=== PATIENT | male | born 1940 | race Caucasian/White ===

== ENCOUNTER → 2017-10-29 11:32 | Outpatient (CLI) | payer MEDICARE, SELFPAY ==
[2017-10-29 13:16] LABS: Alanine Aminotransferase 25 U/L (12-78); Albumin/Globulin Ratio 1.4 (1.1-1.8); Alkaline Phosphatase 82 U/L (46-116); Anion Gap 12.4 mEq/L (5-15); Aspartate Amino Transferase 12 U/L (15-37); Bilirubin,Total 0.8 mg/dL (0.2-1.0); Blood Urea Nitrogen 22 mg/dL (7-18); Carbon Dioxide 29 mmol/L (21.0-32.0); Chloride 106 mmol/L (98-107); Chol/HDL Ratio 4.9 (1-3.5); Cholesterol 210 mg/dL (140-200); Creatinine,Serum 1.23 mg/dL (0.70-1.30); Estimated Glomerular Filt Rate 57 ml/min (>60); GFR (African American) 69 ML/MIN (>60); Globulin 2.8 gm/dl (1.3-3.2); Glucose 99 mg/dL (74-106); HDL Cholesterol 43 mg/dL (27-67); LDL Cholesterol 140 mg/dL (0-130); Potassium 5.4 mmoL/L (3.5-5.1); Sodium 142 mmol/L (136-145); Total Protein,Serum 6.8 gm/dL (6.4-8.2); Triglycerides 133 mg/dL (30-200); VLDL Cholesterol 27 mg/dL (0-40)
== END ==
PROVIDERS: PCP Family Medicine; Visit Provider Family Medicine
DX: E78.00 Pure hypercholesterolemia, unspecified (principal)
CPT/HCPCS: 36415; 80053; 80061

== ENCOUNTER → 2018-06-11 14:00 | Outpatient (CLI) | payer MEDICARE, SELFPAY ==
--- NOTE | 2018-06-11 14:05 | US_ITS ---
US Testicular CLINICAL INDICATION: ITS.REASON: LT TESTICULAR PAIN ORDERING PHYSICIAN: Bruce Hamilton MD PATIENT AGE: 78 years Comparison: None FINDINGS: No testicular mass. No significant hydrocele. Epididymides are unremarkable. There is bilateral testicular blood flow. No spermatocele or varicocele. IMPRESSION: Negative testicular ultrasound
== END ==
PROVIDERS: PCP Family Medicine; Visit Provider Family Medicine
DX: N50.812 Left testicular pain (principal)
CPT/HCPCS: 76870

== ENCOUNTER → 2019-07-17 10:24 | Outpatient (CLI) | payer MEDICARE, SELFPAY | PROVIDERS: PCP Family Medicine; Visit Provider Internal Medicine Cardiovascular Disease | DX: I49.3 Ventricular premature depolarization (principal); R00.2 Palpitations; R06.00 Dyspnea, unspecified; R42 Dizziness and giddiness | CPT/HCPCS: 93270 ==

== ENCOUNTER → 2020-02-24 07:01 | Outpatient (CLI) | payer MEDICARE, SELFPAY ==
[2020-02-24 09:22] LABS: Alanine Aminotransferase 19 U/L (12-78); Albumin Level 4.4 g/dl (3.5-5.0); Alkaline Phosphatase 65 U/L (38-126); Aspartate Amino Transferase 27 U/L (17-59); Bilirubin,Direct 0.3 mg/dl (0.0-0.4); Bilirubin,Indirect 0.5 mg/dL (0.0-0.9); Bilirubin,Total 0.8 mg/dl (0.2-1.3); Bilirubin,Unconjugated 0.4 mg/dL (0.0-1.1); Chol/HDL Ratio 4.4 (1-3.5); Cholesterol 194 mg/dl (140-200); HDL Cholesterol 44 mg/dl (40-60); Total Protein,Serum 7.3 g/dl (6.3-8.2); Triglycerides 132 mg/dl (30-150); VLDL Cholesterol 26 mg/dL (0-40)
== END ==
PROVIDERS: Visit Provider Internal Medicine Cardiovascular Disease
DX: E78.5 Hyperlipidemia, unspecified (principal); I10 Essential (primary) hypertension; I25.10 Atherosclerotic heart disease of native coronary artery without angina pectoris
CPT/HCPCS: 36415; 80061; 80076

== ENCOUNTER → 2020-06-14 07:11 | Outpatient (CLI) | payer MEDICARE, SELFPAY ==
[2020-06-14 07:49] LABS: Basophils # 0.1 K/mm3 (0-0.2); Eosinophils # 0.4 K/mm3 (0.0-0.4); Hematocrit 43.3 % (42.0-52.0); Hemoglobin 14.3 g/dL (14.1-18.0); Lymphocytes # 1.8 K/mm3 (0.7-4.5); Lymphocytes % 25.4 % (10-50); Mean Corpuscular Hemoglobin 31.7 pg (27.0-31.2); Mean Platelet Volume 8.8 fl (7.4-10.4); Monocytes # 0.5 K/mm3 (0.1-1.0); Monocytes % 6.5 % (1.7-9.3); Neutrophils # 4.4 K/mm3 (1.8-7.8); Neutrophils % 61.1 % (37.0-80.0); Platelet Count 200 K/mm3 (142-424); Red Blood Count 4.51 M/mm3 (4.60-6.20); Red Cell Distribution Width 13.6 % (11.5-17.5); White Blood Count 7.2 K/mm3 (4.8-10.8)
[2020-06-14 08:05] LABS: Alanine Aminotransferase 18 U/L (12-78); Albumin Level 4.4 g/dl (3.5-5.0); Albumin/Globulin Ratio 1.8 (1.1-1.8); Alkaline Phosphatase 75 U/L (38-126); Anion Gap 10.9 mEq/L (5-15); Aspartate Amino Transferase 23 U/L (17-59); Bilirubin,Total 0.5 mg/dl (0.2-1.3); Blood Urea Nitrogen 24 mg/dl (9-20); Calcium 9.4 mg/dl (8.4-10.2); Carbon Dioxide 25 mmol/L (22.0-30.0); Chloride 108 mmol/L (98-107); Cholesterol 136 mg/dl (140-200); Estimated Glomerular Filt Rate 45 ml/min (>60); GFR (African American) 55 ML/MIN (>60); Globulin 2.4 g/dL (1.3-3.2); Glucose 105 mg/dl (74-100); HDL Cholesterol 34 mg/dl (40-60); Potassium 4.9 mmoL/L (3.5-5.1); Sodium 139 mmol/L (136-145); Total Protein,Serum 6.8 g/dl (6.3-8.2); Triglycerides 155 mg/dl (30-150); VLDL Cholesterol 31 mg/dL (0-40)
[2020-06-14 08:16] LABS: Direct LDL Cholesterol 68.42 mg/dL (100-129)
[2020-06-14 08:22] LABS: 25-OH Vitamin D, Total 45.7 ng/mL (30-100)
[2020-06-14 08:36] LABS: Thyroid Stimulating Hormone 4.16 uIU/mL (0.465-4.68)
[2020-06-14 08:55] LABS: Vitamin B12 257 pg/mL (239-931)
== END ==
PROVIDERS: Visit Provider Family Medicine
DX: R53.83 Other fatigue (principal); E78.00 Pure hypercholesterolemia, unspecified; Z68.29 Body mass index [BMI] 29.0-29.9, adult
CPT/HCPCS: 36415; 80053; 80061; 82306; 82607; 84443; 85025

== ENCOUNTER → 2020-08-30 13:26 | Outpatient (CLI) | payer MEDICARE, SELFPAY ==
--- NOTE | 2020-08-30 13:28 | CA_ITS ---
APPROVED REPORT EXAM: Comprehensive 2D, Doppler, and color-flow Echocardiogram Newborn Photographer: Meera Shoemaker, JEMIMA, RVS Ht: 5 ft 10 in Wt: 204lbs BSA: 2.10 BP: 126/87 mmHg Indications: CAD, SOA, Dizziness, HTN, HLD, Ex-smoker, syncope Echo Enhancing Agent Comments: Technically difficult exam due to abn chest circumference. 2D Dimensions IVSd 0.93 cm LVEF (Visual) 47.60 % PWd 1.01 cm LA Volume 29.50 mL LVDd 4.76 cm LA Volume Index 14.00 mL/m2 (M/F) 16-34 LVDs 3.62 cm LVOT 2.06 cm (M/F) 1.5-2.5 M-Mode Dimensions LA Diam 2.89 cm (1.9-4.0) Ao Diam 3.51 cm (2.0-3.7) TAPSE 1.98 (<1.7) LV Diastology E Decel Time 167.00 (160-240 msec) E/A Ratio 0.94 MED E' 6.20 (< 7 cm/sec) MED A' 10.20 cm/s E'/MED E' Ratio 13.58 (>14) LAT E' 5.70 (<10 cm/sec) LAT A' 9.70 cm/s E/LAT E' Ratio 14.77 (>14) Aortic Valve LVOT Max 82.00 (70-110 cm/s) LVOT VTI 15.05 cm AoV Peak Ankush. 116.00 (50-130 cm/s) AI PHT 431.00 ms AO Peak GR. 5.40 mmHg AO Mean GR. 3.20 (<5 mmHg) AO VTI 20.03 (18-25 cm) MATTHEW (VTI) 2.50 (2.5-4.5 cm2) Mitral Valve MV E Max Ankush. 84.00 (40-130 cm/s) MV A Velocity 90.00 (40-130 cm/s) E/A Ratio 0.94 MV Decel. Time 167.00 (160-240 ms) MV PHT 49.00 ms Pulmonary Valve PV Peak Velocity 67.00 (50-150 cm/s) IA End VMAX 156.00 cm/s Tricuspid Valve TR P. Velocity 195.00 cm/s RAP Estimate 10.00 mmHg RVSP 25.20 mmHg Left Ventricle Left atrium is mildly enlarged, left ventricle is normal size, mild concentric left ventricular hypertrophy, visually estimated ejection fraction 55% with no regional wall motion abnormality, grade 1 diastolic dysfunction seen with tissue Doppler evidence of raise left atrial pressure. Right Ventricle Right atrium and right ventricle are mildly enlarged with normal contractility. Aortic Valve Aortic valve is minimally thickened and fibrosed, there is no aortic stenosis, there is mild aortic insufficiency. Mitral Valve Mitral valve is grossly normal, there is trace mitral regurgitation. Tricuspid Valve Tricuspid grossly normal, there is trace tricuspid regurgitation, tricuspid regurgitation jet velocity is inadequate for calculation of the right ventricular systolic pressure. Pulmonic Valve Pulmonic valve is poorly visualized. Great Vessels Aortic root is normal size. Pericardium No significant pericardial effusion noted. Conclusion 1. Mild biatrial abdomen, normal left ventricular size, mild concentric left ventricular hypertrophy, visually estimated ejection fraction 55% with no regional wall motion abnormality, grade 1 diastolic dysfunction seen with tissue Doppler evidence of raise left atrial pressure. 2. Mildly enlarged right ventricle with normal contractility. 3. Mild aortic, trace mitral and tricuspid regurgitation. 4. No significant pericardial effusion noted. Electronically signed by : Josh Briggs, 08/30/2020 22:02:25
--- NOTE | 2020-08-30 13:28 | CA_ITS ---
APPROVED REPORT Teacher Industrial Arts: HARMEET Laterality: Bilateral Study Quality: Good Indications: near syncope Risk Factors CAD Doppler Spectral Velocity Analysis ECA (R) 82.30/15.00 cm/s ECA (L) 98.00/14.20 cm/s dICA (R) 116.00/43.40 cm/s dICA (L) 75.80/28.30 cm/s Ryan (R) 104.80/37.40 cm/s Ryan (L) 48.20/19.90 cm/s pICA (R) 65.80/23.90 cm/s pICA (L) 77.80/18.70 cm/s dCCA (R) 81.60/23.90 cm/s dCCA (L) 87.50/22.40 cm/s pCCA (R) 75.60/19.50 cm/s pCCA (L) 98.00/17.20 cm/s Vert (R) 39.60/12.30 cm/s Vert (L) 49.40/15.40 cm/s ICA/CCA 1.42 ICA/CCA 0.89 Findings Study suggests less than 20% stenosis of the right internal carotid artery. B-Mode Ultrasound demonstrates mild intraluminal plaque in the right internal carotid artery. Study suggests less than 20% stenosis of the left internal carotid artery. Duplex evaluation demonstrates antegrade flow of the bilateral vertebral arteries. Conclusion Study suggests less than 20% stenosis of the right internal carotid artery. B-Mode Ultrasound demonstrates mild intraluminal plaque in the right internal carotid artery. Study suggests less than 20% stenosis of the left internal carotid artery. Duplex evaluation demonstrates antegrade flow of the bilateral vertebral arteries. Electronically signed by : Tad Carballo MD 08/30/2020 17:15:48
== END ==
PROVIDERS: PCP Family Medicine; Visit Provider Internal Medicine Cardiovascular Disease
DX: E78.2 Mixed hyperlipidemia (principal); I10 Essential (primary) hypertension; I25.10 Atherosclerotic heart disease of native coronary artery without angina pectoris; R06.00 Dyspnea, unspecified; R55 Syncope and collapse
CPT/HCPCS: 93306; 93880

== ENCOUNTER → 2020-09-03 11:50 | Outpatient (CLI) | payer MEDICARE, SELFPAY | PROVIDERS: PCP Family Medicine; Visit Provider Internal Medicine Cardiovascular Disease | DX: E78.2 Mixed hyperlipidemia (principal); I10 Essential (primary) hypertension; I25.10 Atherosclerotic heart disease of native coronary artery without angina pectoris; I65.29 Occlusion and stenosis of unspecified carotid artery; R06.00 Dyspnea, unspecified; R55 Syncope and collapse | CPT/HCPCS: 93270 ==

== ENCOUNTER → 2020-09-22 12:16 | Outpatient (CLI) | payer MEDICARE, SELFPAY ==
--- NOTE | 2020-09-22 | CA_ITS ---
APPROVED REPORT Exam: Pharmacologic Technologist: Maricarmen Corrales, Ht: 5 ft 10 in Wt: 203 lbs BSA: 2.10 m2 HR: 77 bpm BP: 150/88 mmHg Rhythm: NSR,PVCS Medical History Medical History: HTN, Hyperlipidemia Medications: Aspirin,,,,, Metoprolol,,,,, Flomax,,,,, RoSUVASTATIN,,,,, Ranolazine,,,,, Allergies: No known drug allergies Cardiac Risk Factors: HTN, Hyperlipidemia Stress Test Details Test: LEXISCAN HR Resting HR: 75 bpm Max Heart Rate (APMHR): 141.212938 bpm Max HR Achieved: 99 bpm Target HR (85% APMHR): 119.047994 bpm % of APMHR: 70.21 Recovery HR: 84 bpm BP Max BP: 160/82 mmHg Recovery BP: 152.0/83.0 mmHg ECG Resting ECG: NSR,PVCS Clinical Exercise duration: 04:01 min Highest Stage Achieved: Exercise capacity: 1.0 METs Stress ECG Conclusion SWITCHED FROM EXERCISE DUE TO DIZZINESS. PT HAD MILD SOA, MALAISE, AND NAUSEA. NO CP. FREQUENT ISOLATED PVCS. NO SIGNIFICANT ST-T CHANGES. UNREMARKABLE LEXISCAN STRESS. MYOVIEW IMAGES REPORTED SEPERATELY. Electronically signed by : Josh Briggs MD 09/23/2020 12:15:18
--- NOTE | 2020-09-22 12:17 | NM_ITS ---
APPROVED REPORT Exam: Nuclear Stress Test Indication: HTN, HYPERLIPDEMIA, FM HX., C.P., SOB, PALPITATIONS, SYNCOPE Patient Location: Outpatient Stress Tech: Maricarmen Corrales [place] Tech:Yvonne DumontKANIKA RT (R)(N)(M) Ht: 5 ft 10 in Wt: 200 lbs HR: 77 bpm BP: 150/88 mmHg BSA: 2.09 m2 BMI: 28.6 History: HTN, HYPERLIPDEMIA, FM HX., C.P., SOB, PALPITATIONS, SYNCOPE Procedure: Patient received a 0.4 mg of intravenous Lexiscan, resting heart rate 77 bpm, resting blood pressure 150/88 mmHg, with Lexiscan maximum heart rate achived was 95 bpm which is Less than 85 % of the maximum predicted heart rate and blood pressure was 131/81 mmHg. With Lexiscan, patient denied any complaint of chest pain. Electrocardiogram Resting electrocardiogram shows sinus rhythm, with Lexiscan there is less than 1.[address] segment depression noted from the baseline EKG. The EKG portion of the Lexiscan is nondiagnostic. Cardiac Stress and Resting SPECT Images: Cardiac Stress and Resting SPECT images were obtained using technetium 99m Myoview 31.9 mCi stress and 10.23 mCi at rest. Gated SPECT for analysis of segmental wall motion and calculation of the ejection fraction also done. Prone images were also obtained. Cardiac stress and resting SPECT images show uniform myocardial activity without segmental perfusion abnormality, computer derived ejection fraction is 47% with no regional wall motion abnormality, right ventricle is normal size and contractility. Conclusion: 1. The EKG portion of the Lexiscan is nondiagnostic. 2. No scintigraphic evidence of reversible ischemia seen, computer derived ejection fraction is 47% with no regional wall motion abnormality, right ventricle is normal size and contractility. 3. Likely normal Lexiscan Myoview study. Electronically signed by : Josh Briggs MD 09/23/2020 12:54:53
== END ==
PROVIDERS: PCP Family Medicine; Visit Provider Internal Medicine Cardiovascular Disease
DX: E78.2 Mixed hyperlipidemia (principal); I10 Essential (primary) hypertension; I25.10 Atherosclerotic heart disease of native coronary artery without angina pectoris; I47.2 Ventricular tachycardia; I65.29 Occlusion and stenosis of unspecified carotid artery; R06.00 Dyspnea, unspecified; R55 Syncope and collapse
CPT/HCPCS: 78452; 93017; A9502; J2785

== ENCOUNTER → 2021-11-29 14:29 | Outpatient (CLI) | payer MEDICARE, SELFPAY ==
--- NOTE | 2021-11-29 14:37 | XR_ITS ---
FINAL REPORT CLINICAL HISTORY: RADICULOPATHY UPPER EXTREMITY FINDINGS: CERVICAL SPINE Six views demonstrate no acute fracture. There are moderate to severe degenerative changes. There is mild anterolisthesis of C5 on 6. There is a moderate to severe bilateral neural foraminal narrowing at C3-4. There is mild neural foraminal narrowing at several other levels. IMPRESSION: Multilevel degenerative disc disease. Reviewed, Interpreted and Dictated by Romel Burleson III, MD Transcribed by Anita Peterson Authenticated and [facility]
--- NOTE | 2021-11-29 14:37 | XR_ITS ---
FINAL REPORT CLINICAL HISTORY: ACUTE PAIN OF LEFT SHOULDER FINDINGS: Left shoulder Three views were obtained. There is no acute fracture or dislocation. There is severe glenohumeral and degenerative change. There is a 30 mm calcification inferior to the glenohumeral joint, likely represents a loose body. IMPRESSION: Severe degenerative change. Loose body as above Reviewed, Interpreted and Dictated by Romel Burleson III, MD Transcribed by Anita Peterson Authenticated and [facility]
== END ==
PROVIDERS: PCP Family Medicine; Visit Provider Family Medicine
DX: M54.10 Radiculopathy, site unspecified (principal); M25.512 Pain in left shoulder
CPT/HCPCS: 72050; 73030

== ENCOUNTER → 2021-12-19 10:52 | Outpatient (CLI) | payer MEDICARE, SELFPAY ==
--- NOTE | 2021-12-19 10:55 | CT_ITS ---
FINAL REPORT TECHNIQUE: Axial images were obtained of the cervical spine by computed tomography. Coronal and sagittal reconstruction process performed. This study was performed with techniques to keep radiation doses as low as reasonably achievable (ALARA). Individualized dose reduction techniques using automated exposure control or adjustment of mA and/or kV according to the patient''s size were employed. CLINICAL HISTORY: CERVICAL DISC DISEASE,CSP ARTHRITIS FINDINGS: Cervical vertebrae show normal height. There is advanced disc space narrowing throughout the cervical discs. There is grade 1 spondylolisthesis of C5 on C6. There is mucoperiosteal thickening and air fluid levels in the ethmoid air cells and maxillary sinuses consistent with acute and chronic sinusitis. Mucoperiosteal thickening is also evident in the sphenoid sinus. C2-3: Unremarkable. C3-4: There is a posterior osteophyte eccentric to the right. There is moderate to high-grade right neural foraminal narrowing. C4-5: There is endplate hypertrophy with moderate left neural foraminal narrowing. C5-6: There is moderate endplate hypertrophy with moderate left neural foraminal narrowing. C6-7: There is mild endplate hypertrophy with mild to moderate bilateral neural foraminal narrowing. C7-T1: There is endplate hypertrophy with moderate left neural foraminal narrowing. IMPRESSION: Multilevel hypertrophic changes of degenerative disc disease, particularly evident on the right at C3-4. Acute and chronic paranasal sinusitis. Reviewed, Interpreted and Dictated by Armaan Banks MD Transcribed by Mary Parmar Authenticated and [facility]
== END ==
PROVIDERS: PCP Family Medicine; Visit Provider Family Medicine
DX: M50.90 Cervical disc disorder, unspecified, unspecified cervical region (principal); M54.12 Radiculopathy, cervical region; M47.812 Spondylosis without myelopathy or radiculopathy, cervical region
CPT/HCPCS: 72125

== ENCOUNTER → 2022-01-06 09:21 | Outpatient (CLI) | payer MEDICARE, SELFPAY ==
--- NOTE | 2022-01-06 09:28 | XR_ITS ---
FINAL REPORT TECHNIQUE: Chest PA & Lateral CLINICAL HISTORY: LUNG NODULE COMPARISON: February 2016 FINDINGS: 2 views of the chest were performed. The heart size is normal. The mediastinum is within normal limits. There is no acute cardiopulmonary process. There are no pleural effusions. There is no pneumothorax. The bony thorax appears intact. IMPRESSION: No acute cardiopulmonary process. Reviewed, Interpreted and Dictated by Armaan Banks MD Transcribed by Jay Jay Madera Authenticated and [facility]
== END ==
PROVIDERS: PCP Family Medicine; Visit Provider Family Medicine
DX: R91.1 Solitary pulmonary nodule (principal)
CPT/HCPCS: 71046

== ENCOUNTER → 2022-11-20 11:06 | Outpatient (CLI) | payer MEDICARE, SELFPAY ==
[2022-11-20 11:49] LABS: Basophils # 0.1 K/mm3 (0-0.2); Basophils % 0.7 % (0.1-2.0); Eosinophils # 0.5 K/mm3 (0.0-0.4); Eosinophils % 7.2 % (0.1-12.0); Hematocrit 42.7 % (42.0-52.0); Hemoglobin 14.4 g/dL (14.1-18.0); Lymphocytes # 1.7 K/mm3 (0.7-4.5); Lymphocytes % 23.9 % (10-50); Mean Corpuscular HGB Conc 33.6 g/dL (31.8-35.4); Mean Corpuscular Hemoglobin 31.9 pg (27.0-31.2); Mean Platelet Volume 9.2 fl (7.4-10.4); Monocytes # 0.5 K/mm3 (0.1-1.0); Monocytes % 6.2 % (1.7-9.3); Neutrophils # 4.5 K/mm3 (1.8-7.8); Neutrophils % 62.1 % (37.0-80.0); Platelet Count 149 K/mm3 (142-424); White Blood Count 7.2 K/mm3 (4.8-10.8)
[2022-11-20 12:35] LABS: Alanine Aminotransferase 21 U/L (12-78); Albumin Level 4.3 g/dl (3.5-5.0); Alkaline Phosphatase 61 U/L (38-126); Anion Gap 12.6 mEq/L (5-15); Aspartate Amino Transferase 29 U/L (17-59); Bilirubin,Direct 0.2 mg/dl (0.0-0.4); Bilirubin,Indirect 0.5 mg/dL (0.0-0.9); Bilirubin,Total 0.7 mg/dl (0.2-1.3); Bilirubin,Unconjugated 0.5 mg/dL (0.0-1.1); Blood Urea Nitrogen 23 mg/dl (9-20); Calcium 9.1 mg/dl (8.4-10.2); Carbon Dioxide 25 mmol/L (22.0-30.0); Chloride 105 mmol/L (98-107); Chol/HDL Ratio 2.9 (1-3.5); Cholesterol 115 mg/dl (140-200); Estimated Glomerular Filt Rate 58 ml/min (>60); GFR (African American) 70 ML/MIN (>60); Glucose 102 mg/dl (74-100); HDL Cholesterol 39 mg/dl (40-60); Magnesium 1.8 mg/dl (1.6-2.3); Potassium 4.6 mmoL/L (3.5-5.1); Sodium 138 mmol/L (136-145); Triglycerides 92 mg/dl (30-150); VLDL Cholesterol 18 mg/dL (0-40)
[2022-11-20 12:46] LABS: Direct LDL Cholesterol 61.67 mg/dL (100-129)
[2022-11-20 12:50] LABS: Free T4 (Free Thyroxine) 0.86 ng/dl (0.78-2.19)
[2022-11-20 13:04] LABS: Thyroid Stimulating Hormone 2.93 uIU/mL (0.465-4.68)
== END ==
PROVIDERS: PCP Family Medicine; Visit Provider Nurse Practitioner
DX: E78.5 Hyperlipidemia, unspecified (principal); I10 Essential (primary) hypertension; R06.00 Dyspnea, unspecified; I20.9 Angina pectoris, unspecified; Z87.891 Personal history of nicotine dependence
CPT/HCPCS: 36415; 80048; 80061; 80076; 83735; 84439; 84443; 85025

== ENCOUNTER 2023-04-05 18:20 | Emergency (ER) | payer MEDICARE, SELFPAY ==
[2023-04-05 19:50] VITALS: BP 159/85; PULSE 74; RESP 18; TEMP 36.5; O2SAT 96; BMI 28.7
--- NOTE | 2023-04-05 20:03 | EXP.UTC ---
Discharge Plan Disposition Patient Disposition: Home, Self-Care Condition: Good Prescriptions Prescriptions: New erythromycin 5 mg/gram (0.5 %) ointment 1 cm ophthalmic (eye) Q4H 7 Days Qty: 3.5 0RF No Action aspirin [Adult Low Dose Aspirin] 81 mg tablet,delayed release (DR/EC) 81 mg PO ONCE tamsulosin [Flomax] 0.4 mg capsule,extended release 24hr 0.4 mg PO ONCE metoprolol succinate 25 mg tablet extended release 24 hr See Rx Instructions .ROUTE .COMPLEX Qty: 90 4RF Dose Instruction: TAKE 1 TABLET BY MOUTH ONCE DAILY Rx Instructions: TAKE 1 TABLET BY MOUTH ONCE DAILY rosuvastatin 20 mg tablet See Rx Instructions .ROUTE .COMPLEX Qty: 90 3RF Dose Instruction: TAKE 1 TABLET BY MOUTH ONCE DAILY Rx Instructions: TAKE 1 TABLET BY MOUTH ONCE DAILY levothyroxine 25 mcg tablet 25 mcg PO DAILY Referrals Follow up/Referrals: Bruce Hamilton MD [Primary Care Provider] - See instructions Activity Restrictions/Add. Instructions Additional Instructions/Restrictions: Use the eye ointment as directed. Take tylenol or ibuprofen for pain. You should go to your eye doctor and get recheck in 3 to 4 days. Follow up with your regular doctor. GO TO THE ER FOR ANY WORSENING SYMPTOMS OR CONCERNS Clinical Impressions Clinical Impression: Right cornea abrasion, Need for Tdap vaccination Instructions Patient Instructions: DI for Corneal Abrasion, Tetanus, Diphtheria, and Pertussis Vaccine, Erythromycin Ophthalmic Discharge ED Provider: Ryan Vigil [facility] General Stated complaint: right eye pain Time Seen by Provider: 04/05/23 20:03 History of Present Illness Provider Complaint: He states that since yesterday he has had right eye redness, excessive tearing, and eye irritation. He states that he did not think he got anything in the eye, but his symptoms started right after he was working on restoring an antique tractor and grinding rust of the metal. He denies any change in his vision. He states that he has has long history of having poor vision in that eye and there is no change to that. Related Data Home Medications Medication Instructions Recorded Confirmed aspirin 81 mg tablet,delayed 81 mg PO ONCE 03/21/17 04/05/23 release (Adult Low Dose Aspirin) tamsulosin 0.4 mg capsule (Flomax) 0.4 mg PO ONCE 03/21/17 04/05/23 levothyroxine 25 mcg tablet 25 mcg PO DAILY 04/05/23 04/05/23 Previous Rx's Medication Instructions Recorded metoprolol succinate 25 mg See Rx Instructions .Route 11/20/22 tablet,extended release 24 hr .COMPLEX #90 tabs rosuvastatin 20 mg tablet See Rx Instructions .Route 11/20/22 .COMPLEX #90 tabs erythromycin 5 mg/gram (0.5 %) eye 1 cm ophthalmic (eye) Q4H 7 days 04/05/23 ointment #3.5 grams Allergies Allergy/AdvReac Type Severity Reaction Status Date / Time No Known Allergies Allergy Verified 04/05/23 20:15 [facility] Disclaimer: The information contained in this section may have been updated after the patient was seen, as this information can be updated by other users. Medical History Chest pain Dizziness Dyspnea Palpitations PVC (premature ventricular contraction) Social History Smoking Status: Former smoker alcohol intake: current substance use type: denies use current occupational status: retired Travel in the last 8 weeks: Inside the [place] ROS Obtained: Yes All systems reviewed & no additional complaints except as documented Constitutional Constitutional: Denies chills and Denies fever(s) Eyes Eyes: Reports as per HPI, Denies blurry vision, Denies change in vision, Denies diplopia, Reports eye discharge and Reports irritation ENT Ears, Nose, Mouth, and Throat: Denies dizziness, Denies otalgia and Denies sore throat Cardiovascular Cardiovascular: Denies chest pain Respiratory Respiratory: Denies shortness of breath, Denies chest congestion, Denies cough, Denies stridor and Denies wheezing Gastrointestinal Gastrointestingal: Denies nausea or vomiting Musculoskeletal Musculoskeletal: Reports system reviewed and no additional complaints, except as documented and Denies arthralgias Integumentary/Breasts Skin/Breast: Denies rash Neurologic Neurologic: Denies dizziness and Denies paresthesias Allergic/Immunologic Allergic/Immunologic: Denies wheezing Physical Exam General General appearance: alert and in no apparent distress Head Head exam: atraumatic, normocephalic and normal inspection Eye Eye exam: Present PERRL, EOMI and conjunctival redness Expanded Eye Exam Eyelids: left: normal inspection and right: erythema Pupils: Left: size (2), Right: size (2) and Bilateral: regular, round and reactive Sclera/Conjunctival: left: normal inspection and right: injection (there is a small corneal abrasion at the 6:00 position, no foreign body noted.) ENT ENT exam: Present normal exam, normal oropharynx, mucous membranes moist, TM's normal bilaterally and normal external ear exam Neck Neck exam: Present normal inspection, full ROM and trachea midline; Absent meningismus or lymphadenopathy Chest Chest inspection: Present normal inspection and symmetric chest wall rise; Absent tenderness Respiratory Respiratory exam: Present normal lung sounds bilaterally; Absent respiratory distress Cardiovascular Cardiovascular exam: Present regular rate and normal rhythm; Absent JVD Abdominal Exam Abdominal exam: Present soft and normal bowel sounds; Absent distention, tenderness or guarding Extremities Exam Extremities exam: Present normal inspection, full ROM and normal capillary refill; Absent calf tenderness Back Exam Back exam: Present normal inspection; Absent tenderness Neurological Exam Neurological exam: Present alert and oriented X3 Psychiatric Psychiatric exam: Present normal affect and normal mood Skin Skin exam: Present warm, dry, intact and normal color Lymphatic Lymphatic Findings: no adenopathy Medical Decision Making Medical Records Medical records reviewed: No I reviewed the patient's medical records. Fei Inquiry Pt receiving controlled substance: No Procedures Risk/Benefits of Procedure(s) Were Explained: Yes Eye Exam/FB Removal Location: eye (R) Topical anesthetic used: tetracaine Fluorescein Stick(s) used: Yes Time Out performed: Yes Procedure performed under: direct visualization with magnification Foreign body: other (none noted) Evidence of corneal penetration: No Technique: irrigation Post-procedure medication: ophthalmic antibiotic Eye irrigated w/saline (#ccs): 20 Patient tolerated procedure: well and no complications (He tolerated this very well, no foreign body noted. no corneal penetration noted. there is a small corneal abrasion noted at the 6:00 pm position. )
[2023-04-05] MEDS: TET/DIPHTH/PERT-ADULT 0.5ML SYRINGE 0.5 ML IM (21:04)
[2023-04-05 21:16] VITALS: BP 159/85; PULSE 74; RESP 18; TEMP 36.5; O2SAT 96
[2023-04-05] MEDS: TETRACAINE 0.5% OPTH SOL 15ML OP (22:02)
== END 2023-04-05 21:16 | disposition home or self-care (01) ==
PROVIDERS: Emergency Provider Nurse Practitioner Family; PCP Family Medicine
DX: S05.01XA Injury of conjunctiva and corneal abrasion without foreign body, right eye, initial encounter (principal); I10 Essential (primary) hypertension; E78.5 Hyperlipidemia, unspecified; K21.9 Gastro-esophageal reflux disease without esophagitis; W45.8XXA Other foreign body or object entering through skin, initial encounter; Z87.891 Personal history of nicotine dependence; Z23 Encounter for immunization
CPT/HCPCS: 90471; 90715; 99204; 99212; G0463

== ENCOUNTER 2023-10-19 11:43 | Observation (INO) | payer MEDICARE, SELFPAY ==
[2023-10-19] VITALS (20 sets, daily range): BP systolic 100–156; BP diastolic 55–98; PULSE 52–72; RESP 15–18; TEMP 36.6–37.1; O2SAT 91–99; BMI 27.8; BMI 28.3; BMI 28.4
--- NOTE | 2023-10-19 11:45 | ECG_ITS ---
APPROVED REPORT Exam: Resting ECG HR:60 bpm ECG Measurements Heart Rate 60 AXES SC 200 P -4 QRSd 106 QRS 24 QT 427 T 64 QTc 427 Conclusion SINUS RHYTHM NORMAL ECG UNCONFIRMED REPORT Electronically signed by : Puneet Mak MD 10/20/2023 08:33:01
--- NOTE | 2023-10-19 12:01 | XR_ITS ---
FINAL REPORT CLINICAL HISTORY: chest pain COMPARISON: 01/06/2022 FINDINGS: SINGLE-VIEW CHEST The heart size is normal. The mediastinum is normal. The lungs are clear. There is no pneumothorax. IMPRESSION: No acute cardiopulmonary process. Reviewed, Interpreted and Dictated by Romel Burleson III, MD Transcribed by Anita Peterson Authenticated and [facility]
[2023-10-19 12:10] LABS: Albumin Level 4.3 g/dl (3.5-5.0); Basophils # 0.1 K/mm3 (0-0.2); Chloride 107 mmol/L (98-107); Eosinophils # 0.4 K/mm3 (0.0-0.4); Eosinophils % 5.4 % (0.1-12.0); Hematocrit 42.9 % (42.0-52.0); Hemoglobin 13.6 g/dL (14.1-18.0); Lymphocytes # 1.5 K/mm3 (0.7-4.5); Lymphocytes % 21.8 % (10-50); Mean Corpuscular HGB Conc 31.6 g/dL (31.8-35.4); Mean Corpuscular Hemoglobin 30.2 pg (27.0-31.2); Mean Corpuscular Volume 95.6 fl (80-94); Mean Platelet Volume 10.4 fl (7.4-10.4); Monocytes # 0.5 K/mm3 (0.1-1.0); Monocytes % 6.5 % (1.7-9.3); Neutrophils # 4.6 K/mm3 (1.8-7.8); Neutrophils % 65.3 % (37.0-80.0); Platelet Count 190 K/mm3 (142-424); Potassium 4.3 mmoL/L (3.5-5.1); Red Blood Count 4.49 M/mm3 (4.60-6.20); Red Cell Distribution Width 15.5 % (11.5-17.5); Sodium 139 mmol/L (136-145)
[2023-10-19 12:13] LABS: Alanine Aminotransferase 19 U/L (12-78); Albumin/Globulin Ratio 1.5 (1.1-1.8); Alkaline Phosphatase 67 U/L (38-126); Anion Gap 10.3 mEq/L (5-15); Aspartate Amino Transferase 31 U/L (17-59); Bilirubin,Total 0.8 mg/dl (0.2-1.3); Blood Urea Nitrogen 23 mg/dl (9-20); Carbon Dioxide 26 mmol/L (22.0-30.0); Creatinine Clearance Estimated 61 mL/min (50-200); Estimated Glomerular Filt Rate 58 ml/min (>60); GFR (African American) 70 ML/MIN (>60); Globulin 2.9 g/dL (1.3-3.2); Glucose 93 mg/dl (74-100); Total Protein,Serum 7.2 g/dl (6.3-8.2)
[2023-10-19 12:14] LABS: Calcium 8.9 mg/dl (8.4-10.2); Magnesium 1.9 mg/dl (1.6-2.3)
--- NOTE | 2023-10-19 12:28 | PC.NURSE ---
TROPONIN 1.57 RECEIVED FROM [facility] IN LAB, DR KISER NOTIFIED AT THIS TIME. NO NEW ORDERS
[2023-10-19 12:29] LABS: Troponin I 1.57 ng/ml (0.00-0.034)
[2023-10-19 12:30] LABS: T4 (Thyroxine) 8.4 ug/dl (5.53-11.0)
--- NOTE | 2023-10-19 12:37 | PC.NURSE ---
Dr. Hannon s/w Dr. Flores for cardiology consult
--- NOTE | 2023-10-19 12:44 | PC.NURSE ---
SPEAKING WITH DR. FISHMAN AT THIS TIME
--- NOTE | 2023-10-19 12:49 | IR_ITS ---
APPROVED REPORT Patient Location: Emergent Manufacturing Operator: KANIKA Crabtree RT (R) PROCEDURES Left heart catheterization Left ventriculogram Selective coronary angiogram INDICATION Acute non-ST elevation myocardial infarction Informed consent was obtained prior to the procedure. COMPLICATIONS None Estimated Blood Loss: Less than 10 mls TECHNIQUE One percent lidocaine used to anesthetize the right anterior aspect of the wrist. The right radial artery was accessed via the Seldinger technique. A 6 Luxembourgish sheath was placed in the right radial artery. 2.5 mg of Verapamil, 800 mcg of nitroglycerin, 1mg Lidocaine and 5000 U Heparin were given through the arterial sheath. The papa catheter was also used to perform left heart catheterization, left ventriculogram and selective coronary angiogram. At the end of the procedure the sheath was removed good hemostasis was achieved using Traclet band, patient was transferred to the postop holding area in stable condition. ANGIOGRAPHIC RESULTS The left main artery Normal The left anterior descending artery Is widely patent throughout accompanied by mild to moderate diffuse vascular ectasia with no stenosis in the LAD or diagonal artery greater than 20% The circumflex artery Is a large-caliber vessel with moderate proximal and mid vessel vascular ectasia supplying a medium sized widely patent obtuse marginal artery with minimal luminal regularities The right coronary artery Is dominant and has moderate proximal and mid vessel vascular ectasia which then narrows into a widely patent posterior descending artery. CATHLEEN I flow was present throughout The MCGILL ventriculogram reveals Slight left ventricular dilatation with mild anterior wall hypokinesis estimate ejection fraction 50% The left ventricular end-diastolic pressure 20 mmHg IMPRESSION Coronary disease as described above which is essentially unchanged from 2017 cardiac catheterization which also had CATHLEEN I flow down the right coronary artery Regional wall motion abnormality which was present in 2017 also unchanged Mild elevated LVEDP PLAN 1. Recommend Plavix 75 mg daily plus aspirin 81 mg daily for at least 1 year 2. LDL less than 55 to be achieved with high intensity statin 3. CARL inhibitors 4. Cardiac rehabilitation Electronically signed by : Ken Flores MD 10/19/2023 14:57:14
--- NOTE | 2023-10-19 13:00 | PC.NURSE ---
Pt placed in gown, reviewed consent with him and Dr. Hannon. Groin and R radial site clipped. Pt's belongings were collected and placed in belongings bag. Pt belongs consists of: Ball cap, glasses, shorts, belt, cell phone, phone case, wallet (in pants), shoes, t-shirt, and labeled cup with wedding band and watch.
--- NOTE | 2023-10-19 13:19 | PC.NURSE ---
PT TO [facility] VIA WC WITH SERVICE TRAINER
[2023-10-19] MEDS: HEPARIN 1,000 UNITS/ML 10ML VIAL (CATH LAB) 10000 UNIT IV (13:33)
[2023-10-19] MEDS: diphenhydrAMINE 50MG/ML VIAL 50 MG IV (13:33)
[2023-10-19] MEDS: VERAPAMIL 2.5MG/ML 2ML VIAL 2.5 MG IV (13:33)
[2023-10-19] MEDS: 0.9 % SODIUM CHLORIDE 500 ML 25 ML IV (13:34)
[2023-10-19] MEDS: NITROGLYCERIN 800MCG/8ML SYR (CATH LAB) 800 MCG IA (13:34)
[2023-10-19] MEDS: LIDOCAINE 1% 10ML MDV 20 ML IJ (13:34)
[2023-10-19] MEDS: HEPARIN 1,000 UNITS/500ML NS (CATH LAB) 3000 UNIT IV (13:35)
[2023-10-19] MEDS: MIDAZOLAM HCL 1MG/1ML 5ML VIAL 1 MG IV (13:35)
[2023-10-19] MEDS: FENTANYL 100MCG/2ML VIAL 50 MCG IV (13:36)
[2023-10-19] MEDS: IOPAMIDOL-370 (76%);100ML BOTTLE 80 ML IV (15:10)
--- NOTE | 2023-10-19 15:36 | ED_ITS ---
Discharge Plan Disposition Patient Disposition: Still a Patient Condition: Serious Clinical Impressions Clinical Impression: NSTEMI (non-ST elevated myocardial infarction), Chest pain Discharge ED Provider: Wei Hannon Adult HPI General Chief complaint: Chest Pain Stated complaint: Chest Pain Time Seen by Provider: 10/19/23 12:00 Mode of Arrival: Wheelchair Source of Information: Patient and Medical Record Limitations: No Limitations Description of Symptoms (Recalled from ER Triage Doc. by RN): Pt c/o left sided chest pain (tightness) that has been intermittent since last week when he was traveling out of [facility]. He takes a full dose aspirin. Rates pain 2/10 on [employer] at this time. Denies any radiating pain, SOA, or dypnea. Denies any fever, chills, or body aches. Denies any significant cardiac History of Present Illness HPI narrative: 83-year-old male with past medical history significant for GERD, HLD, HTN, reports history of elevated troponin last week in [place] presents today for evaluation concerning chest pain which has been present over the past week. His pain has been more constant today which caused him to come to the ED. He states that when he was in [place] on last week it was recommended that he be admitted to the hospital however he declined. He denies having any significant shortness of breath, fevers, chills, abdominal pain or any other associated symptoms. He took 324 aspirin prior to coming to the ED and states that his current pain is a 1 out of 10. No further complaints at this time. Related Data Home Medications ?Medication ?Instructions ?Recorded ?Confirmed aspirin 81 mg tablet,delayed 81 mg PO ONCE 03/21/17 04/05/23 release (Adult Low Dose Aspirin) tamsulosin 0.4 mg capsule (Flomax) 0.4 mg PO ONCE 03/21/17 04/05/23 levothyroxine 25 mcg tablet 25 mcg PO DAILY 04/05/23 04/05/23 Previous Rx's ?Medication ?Instructions ?Recorded metoprolol succinate 25 mg See Rx Instructions .Route 11/20/22 tablet,extended release 24 hr .COMPLEX #90 tabs rosuvastatin 20 mg tablet See Rx Instructions .Route 11/20/22 .COMPLEX #90 tabs erythromycin 5 mg/gram (0.5 %) eye 1 cm ophthalmic (eye) Q4H 7 days 04/05/23 ointment #3.5 grams Allergies Allergy/AdvReac Type Severity Reaction Status Date / Time No Known Allergies Allergy Verified 04/05/23 20:15 [facility] Disclaimer: The information contained in this section may have been updated after the patient was seen, as this information can be updated by other users. Medical History Chest pain Dizziness Dyspnea Palpitations PVC (premature ventricular contraction) Social History Smoking Status: Unknown if ever smoked alcohol intake: current alcohol intake frequency: a few times a month substance use type: denies use current occupational status: retired Travel in the last 8 weeks: Inside the [place] ROS Obtained: Yes All systems reviewed & no additional complaints except as documented Physical Exam General General appearance: alert and in no apparent distress Head Head exam: atraumatic and normocephalic Eye Eye exam: Present normal appearance, PERRL and EOMI ENT ENT exam: Present normal oropharynx and mucous membranes moist Neck Neck exam: Present full ROM; Absent meningismus Respiratory Respiratory exam: Absent respiratory distress, wheezes, stridor or accessory muscle use Cardiovascular Cardiovascular exam: Present normal rhythm Abdominal Exam Abdominal exam: Present soft; Absent distention, tenderness, guarding, rebound or rigidity Neurological Exam Neurological exam: Present alert, oriented X3 and CN II-XII intact; Absent motor sensory deficit Psychiatric Psychiatric exam: Present normal affect and normal mood Skin Skin exam: Present warm and dry Medical Decision Making Medical Records Medical records reviewed: Yes I reviewed the patient's medical records. Fei Inquiry Pt receiving controlled substance: No Fei was queried for this patient: No Vital Signs: 10/19/23 11:44 10/19/23 12:01 Temperature 98.2 F Temperature Source Oral Pulse Rate [Right] 66 Respiratory Rate 15 15 Blood Pressure 127/72 Blood Pressure [Right Arm] 156/81 H Blood Pressure Mean 106 Blood Pressure Mean [Right Arm] 106 Blood Pressure Source [Right Arm] Automatic Cuff 02 Sat by Pulse Oximetry 98 94 L Oxygen Delivery Method Room Air Room Air Lab Data Lab Results 10/19/23 11:50: WBC 7.0, RBC 4.49 L, Hgb 13.6 L, Hct 42.9, MCV 95.6 H, MCH 30.2, MCHC 31.6 L, RDW 15.5, Plt Count 190, MPV 10.4, Neut % (Auto) 65.3, Lymph % (Auto) 21.8, [place] % (Auto) 6.5, Eos % (Auto) 5.4, Baso % (Auto) 1.0, Neut # (Auto) 4.6, Lymph # (Auto) 1.5, [place] # (Auto) 0.5, Eos # (Auto) 0.4, Baso # (Auto) 0.1, Sodium 139, Potassium 4.3, Chloride 107, Carbon Dioxide 26, Anion Gap 10.3, BUN 23 H, Creatinine 1.20, Estimated Creat Clear 61, Estimated GFR 58 L, Est GFR ( Amer) 70, Glucose 93, Calcium 8.9, Magnesium 1.9, Total Bilirubin 0.8, AST 31, ALT 19, Alkaline Phosphatase 67, Troponin I 1.57 H, Total Protein 7.2, Albumin 4.3, Globulin 2.9, Albumin/Globulin Ratio 1.5, TSH 3.80, Thyroxine (T4) 8.4 10/19/23 11:50 10/19/23 11:50 Orders (Tests/Meds): ED MEDICATIONS Generic Name Dose Route Start Last Admin Trade Name Freq PRN Reason Stop Dose Admin Fentanyl Citrate 50 mcg 10/19/23 12:46 10/19/23 13:36 Fentanyl 100mcg/2ml Vial IV 10/20/23 00:46 100 mcg Q3MINP PRN Administration Moderate to Severe Pain (4-10) Fentanyl Citrate 25 mcg 10/19/23 12:46 Fentanyl 250mcg/5ml Vial IV 10/20/23 00:46 Q3MINP PRN Moderate to Severe Pain (4-10) Fentanyl Citrate 50 mcg 10/19/23 12:46 Fentanyl 250mcg/5ml Vial IV 10/20/23 00:46 Q3MINP PRN Moderate to Severe Pain (4-10) Fentanyl Citrate 25 mcg 10/19/23 12:46 Fentanyl 100mcg/2ml Vial IV 10/20/23 00:46 Q3MINP PRN Moderate to Severe Pain (4-10) Flumazenil 0.2 mg 10/19/23 12:46 Flumazenil 0.1mg/Ml 5ml Vial IV 10/20/23 00:46 NEEDED PRN Sedation Heparin Sodium (Porcine) 10,000 unit 10/19/23 12:46 10/19/23 13:33 Heparin 1,000 Units/Ml 10ml Vial (Cotton Bag Clipper) IV 10/19/23 16:46 5,000 unit NEEDED PRN Administration Emergency Box Table Operator Hydralazine HCl 20 mg 10/19/23 12:46 Hydralazine 20mg/Ml Vial IV 10/19/23 16:46 ONCE PRN sbp>160 Adenosine 180 mg/ Sodium 90 mls @ 489.877 mls/hr 10/19/23 12:46 Chloride IV 10/19/23 16:46 ONCE PRN fractional flow reserve 180 MCG/KG/MIN Adenosine 90 mg/ Sodium 90 mls @ 979.754 mls/hr 10/19/23 12:46 Chloride IV 10/19/23 16:46 ONCE PRN fractional flow reserve 180 MCG/KG/MIN Sodium Chloride 1,000 mls @ 25 mls/hr 10/19/23 13:00 10/19/23 13:34 Sod Chloride 0.9% 500ml Bag IV 10/20/23 12:46 25 mls/hr .Q25H TIEN Administration Labetalol HCl 20 mg 10/19/23 12:46 Labetalol 20mg/4ml Syringe IV 10/19/23 16:46 ONCE PRN sbp>160 Midazolam HCl 1 mg 10/19/23 12:46 Midazolam 2mg/2ml Vial IV 10/20/23 00:46 Q3MINP PRN Sedation Midazolam HCl 1 mg 10/19/23 12:46 10/19/23 13:35 Midazolam Hcl 1mg/1ml 5ml Vial IV 10/20/23 00:46 3 mg Q3MINP PRN Administration Sedation Naloxone HCl 0.4 mg 10/19/23 12:46 Naloxone 0.4mg/Ml Vial IV 10/20/23 00:46 Q5MINP PRN Decreased Respirations Nitroglycerin 800 mcg 10/19/23 12:46 10/19/23 13:34 Nitroglycerin 800mcg/8ml Syr (Cotton Bag Clipper) IA 10/19/23 16:46 800 mcg NEEDED PRN Administration Emergency Box Table Operator Protamine Sulfate 50 mg 10/19/23 12:46 Protamine Sulfate 50mg/5ml Vial (Cotton Bag Clipper) IV 10/19/23 16:46 ONCE PRN act>200 Discontinued Medications Generic Name Dose Route Start Last Admin Trade Name Brandon PRN Reason Stop Dose Admin Diphenhydramine HCl 50 mg 10/19/23 12:46 10/19/23 13:33 Diphenhydramine 50mg/Ml Vial IV 10/19/23 12:47 50 mg ONCE ONE Administration Heparin Sodium/Sodium Chloride 3,000 unit 10/19/23 12:46 10/19/23 13:35 Heparin 1,000 Units/500ml Ns (Cotton Bag Clipper) IV 10/19/23 12:47 3,000 unit ONCE ONE Administration Iopamidol 80 ml 10/19/23 15:09 10/19/23 15:10 Iopamidol-370 (76%);100ml Bottle IV 10/19/23 15:10 80 ml ONCE ONE Administration Lidocaine HCl 20 ml 10/19/23 12:46 10/19/23 13:34 Lidocaine 1% 10ml Mdv IJ 10/19/23 12:47 10 ml ONCE ONE Administration Lidocaine HCl 20 ml 10/19/23 12:46 Lidocaine 1% 5ml Pf Vial IJ 10/19/23 12:47 ONCE ONE Verapamil HCl 2.5 mg 10/19/23 12:46 10/19/23 13:33 Verapamil 2.5mg/Ml 2ml Vial IV 10/19/23 12:47 2.5 mg ONCE ONE Administration ORDERS Category Date Time Status XR chest portable Stat Exams 10/19/23 12:01 Completed Complete Blood Count Auto Diff Stat Lab 10/19/23 11:50 Completed Comprehensive Metabolic Panel Stat Lab 10/19/23 11:50 Completed Magnesium Stat Lab 10/19/23 11:50 Completed T4 (Thyroxine) Stat Lab 10/19/23 11:50 Completed TSH [Thyroid Stimulating Hormone] Stat Lab 10/19/23 11:50 Completed Troponin I Stat Lab 10/19/23 11:50 Completed ECG initial Besson Routine Y 10/19/23 11:45 Completed HEART Score History (anamnesis): Highly suspicious ECG: Normal Age: >65 years Risk factors: 3 or more risk factors Troponin: > 3x normal limit HEART Score: 8 Medical Decision Narrative: 83-year-old male with past medical history significant for GERD, HLD, HTN, reports history of elevated troponin last week in [place] presents today for evaluation concerning chest pain which has been present over the past week. His pain has been more constant today which caused him to come to the ED. He states that when he was in [place] on last week it was recommended that he be admitted to the hospital however he declined. He denies having any significant shortness of breath, fevers, chills, abdominal pain or any other associated symptoms. He took 324 aspirin prior to coming to the ED and states that his current pain is a 1 out of 10. On assessment he was hemodynamically stable and in no acute distress. Afebrile. His chest was clear to auscultation bilaterally. His abdomen was soft nondistended and nontender to palpation. His EKG was personally interpreted by me and showed normal sinus rhythm with a rate of 60 bpm. No ischemic changes noted. Chest x-ray did not show any acute cardiopulmonary disease processes. No elevation in WBC at 7. CMP was nonactionable. His initial troponin was elevated at 1.57. I did consult with cardiology, Dr. Flores, and discussed management and has agreed to evaluate patient for catheterization on today. I also consulted with Dr. Hamilton who is patient's PCP and he has accepted admission at this time. Patient was agreeable to plan and remains hemodynamically stable and in no acute distress. Critical Care Critical Care Time Critical Care Time: No
--- NOTE | 2023-10-19 15:54 | HMH.PHAINT1 ---
Pharmacy Intervention Comments: MEDICATION RECONCILIATION COMPLETE USING EXTERNAL PHARMACY FILL HISTORY.
--- NOTE | 2023-10-19 16:33 | P.HP_ITS ---
History of Present Illness *Admission Date: 10/19/23 *Reason for visit:: Chest pain *History of present illness: Mr. Zaidi is an 83 year old patient of [facility] who presented tot he office today complaining of chest pain and dizziness off and on for the past week. His symptoms started while he was on vacation in [place]. He went to an emergency room there and was told that he was having a heart attack. He was treated with Aspirin and nirtroglycerin and his symptoms resolved. The provider there wanted to admit the patient to the hospital but he declined, and apparently signed out against medical advice. He spent a few more days in [place] before returning home. He states he had a return of symptoms this morning, which he describes as chest pressure and dizziness. He was evaluated in the office today and was directed to the ER at [facility]. Initial troponin was 1.5, cardiology was consulted and took the patient to the mini lab operator for a left heart cath. He previously had a left heart cath in 2017. [facility] Disclaimer: The information contained in this section may have been updated after the patient was seen, as this information can be updated by other users. Medical History (Updated 10/19/23 @ 16:46 by Bruce Hamilton MD) BPH (benign prostatic hyperplasia) Hypothyroidism Hyperlipidemia History of left heart catheterization (LHC) PVC (premature ventricular contraction) Palpitations Chest pain Dizziness Surgical History (Updated 10/19/23 @ 15:44 by Jesica Armstrong RN) History of knee replacement History of right hip replacement Family History (Updated 10/19/23 @ 15:43 by Jesica Armstrong RN) No significant family history Social History (Updated 10/19/23 @ 15:43 by Jesica Armstrong RN) Smoking Status: Unknown if ever smoked alcohol intake: current alcohol intake frequency: a few times a month substance use type: denies use current occupational status: retired Travel in the last 8 weeks: [place] the [place] Review of Systems Constitutional Constitutional: Denies chills and Denies fever(s) ENT Ears, Nose, Mouth, and Throat: Reports dizziness *Cardiovascular Cardiovascular: Reports as per HPI *Respiratory Respiratory: Denies cough *Gastrointestinal Gastrointestinal: Denies abdominal pain and Denies constipation *Genitourinary Genitourinary: Denies hematuria *Musculoskeletal Musculoskeletal: Denies arthralgias *Neurologic Neurologic: Reports dizziness Meds Home Medications and Allergies Home Medications ?Medication ?Instructions ?Recorded ?Confirmed ?Type aspirin 81 mg tablet,delayed 81 mg PO DAILY 03/21/17 10/19/23 History release (Adult Low Dose Aspirin) tamsulosin 0.4 mg capsule (Flomax) 0.4 mg PO HS 03/21/17 10/19/23 History levothyroxine 25 mcg tablet 25 mcg PO DAILYDM 04/05/23 10/19/23 History metoprolol succinate 25 mg 25 mg PO DAILY 10/19/23 10/19/23 History tablet,extended release 24 hr nitroglycerin 0.4 mg sublingual 0.4 mg sublingual Q5MINP PRN Chest 10/19/23 10/19/23 History tablet Pain rosuvastatin 20 mg tablet 20 mg PO HS 10/19/23 10/19/23 History New Prescriptions to Start Prescriptions: Allergies Allergy/AdvReac Type Severity Reaction Status Date / Time No Known Allergies Allergy Verified 04/05/23 20:15 Exam Data for Last 24 hours Vital signs and Labs for Last 24 Hours: Temp Pulse Resp BP Pulse Ox O2 Del Method 97.8 F 55 L 17 103/59 L 95 Room Air 10/19/23 15:45 10/19/23 15:45 10/19/23 15:45 10/19/23 15:45 10/19/23 16:19 10/19/23 16:19 Laboratory Results - last 24 hr 10/19/23 11:50: WBC 7.0, RBC 4.49 L, Hgb 13.6 L, Hct 42.9, MCV 95.6 H, MCH 30.2, MCHC 31.6 L, RDW 15.5, Plt Count 190, MPV 10.4, Neut % (Auto) 65.3, Lymph % (Auto) 21.8, [place] % (Auto) 6.5, Eos % (Auto) 5.4, Baso % (Auto) 1.0, Neut # (Auto) 4.6, Lymph # (Auto) 1.5, [place] # (Auto) 0.5, Eos # (Auto) 0.4, Baso # (Auto) 0.1, Sodium 139, Potassium 4.3, Chloride 107, Carbon Dioxide 26, Anion Gap 10.3, BUN 23 H, Creatinine 1.20, Estimated Creat Clear 61, Estimated GFR 58 L, Est GFR ( Amer) 70, Glucose 93, Calcium 8.9, Magnesium 1.9, Total Bilirubin 0.8, AST 31, ALT 19, Alkaline Phosphatase 67, Troponin I 1.57 H, Total Protein 7.2, Albumin 4.3, Globulin 2.9, Albumin/Globulin Ratio 1.5, TSH 3.80, Thyroxine (T4) 8.4 I & O for Last 24 hours: Intake & Output 10/16/23 10/17/23 10/18/23 10/19/23 23:59 23:59 23:59 23:59 Weight 198 lb 4 oz Constitutional Constitutional: no acute distress *Routine HEENT Exam Head: Present normocephalic Eye: Present EOMI and PERRL ENT: Present mucous membranes moist *Routine Neck Exam Neck: Present supple; Absent lymphadenopathy *Routine Respiratory Exam Respiratory: Present CTA bilaterally *Routine Cardiovascular Exam Cardiovascular: Present RRR *Routine Abdominal Exam Abdominal: Present soft and normoactive bowel sounds; Absent tenderness *Routine Rectal Exam Rectal:: deferred *Routine Genitalia Exam Genitalia:: deferred *Routine Extremities Exam Extremities: Absent cyanosis, clubbing or edema *Routine Skin Exam Skin: Present warm; Absent rash *Routine Neurological Exam Neurological: Present alert and oriented X3 Assessment and Plan *Assessment and plan (1) NSTEMI (non-ST elevated myocardial infarction): Status: Acute Category: Medical Code(s): I21.4 - Non-ST elevation (NSTEMI) myocardial infarction (2) Elevated troponin: Status: Acute Category: Medical Code(s): R79.89 - Other specified abnormal findings of blood chemistry (3) Vascular ectasias: Status: Acute Category: Medical Code(s): I99.9 - Unspecified disorder of circulatory system (4) Chest pain: Status: Acute Qualifiers: Chest pain type: unspecified Qualified Code(s): R07.9 - Chest pain, unspecified Category: Medical Code(s): R07.9 - Chest pain, unspecified (5) Hyperlipidemia: Status: Chronic Qualifiers: Hyperlipidemia type: mixed hyperlipidemia Qualified Code(s): E78.2 - Mixed hyperlipidemia Category: Medical Code(s): E78.5 - Hyperlipidemia, unspecified (6) Dizziness: Status: Acute Category: Medical Code(s): R42 - Dizziness and giddiness (7) Hypothyroidism: Status: Acute Category: Medical Code(s): E03.9 - Hypothyroidism, unspecified Plan Patient admitted after Left heart cath, see cath report. Start new meds, plan to observe overnight, possible discharge home tomorrow. Spoke to patient and his about diagnosis.
[2023-10-19] MEDS: CLOPIDOGREL 75MG TAB 75 MG PO (17:13)
[2023-10-19] MEDS: TAMSULOSIN 0.4MG CAPSULE 0.4 MG PO (20:28)
[2023-10-20] VITALS: BP 98/51; PULSE 63; PULSE 77; RESP 16; TEMP 36.9; O2SAT 94
[2023-10-20 04:00] VITALS: PULSE 60; BMI 28.4
--- NOTE | 2023-10-20 04:47 | PC.NURSE ---
Pt is A&OX4 and has tolerated room air throughout the shift. Lung sounds clear throughout and bowel sounds active in all quadrants. Pt has denied any chest pain or shortness of breath. He has been ambulating independently to the bathroom. Dressing over right radial cath site is clean, dry and intact. No complaints at this time, call light within reach.
[2023-10-20] MEDS: LEVOTHYROXINE 25MCG (0.025MG) TAB 25 MCG PO (06:33)
[2023-10-20 08:00] VITALS: BP 133/65; PULSE 80; PULSE 83; RESP 20; TEMP 36.7; O2SAT 92
[2023-10-20] MEDS: CLOPIDOGREL 75MG TAB 75 MG PO (08:25)
[2023-10-20] MEDS: LISINOPRIL 5MG TABLET 5 MG PO (08:25)
[2023-10-20] MEDS: ASPIRIN EC 81MG TABLET 81 MG PO (08:27)
--- NOTE | 2023-10-20 10:19 | EXP.ACUTE.PN ---
Subjective *Date: 10/20/23 *Time: 10:19 Interval history: Patient feels well this morning, anxious to go home. Medical Exam Vital signs and Labs for Last 24 Hours: Vital Signs Temp Pulse Pulse Resp BP BP Pulse Ox 10/20/23 09:00 10/20/23 08:00 10/20/23 08:00 98.0 F 83 20 133/65 92 L 10/20/23 07:00 10/20/23 05:00 10/20/23 04:00 60 10/20/23 03:00 10/20/23 01:00 10/20/23 00:00 63 10/20/23 00:00 98.4 F 77 16 98/51 L 94 L 10/19/23 23:00 10/19/23 22:00 72 132/98 H 92 L 10/19/23 21:00 65 16 113/65 91 L 10/19/23 21:00 10/19/23 20:00 63 10/19/23 20:00 64 18 109/59 L 93 L 10/19/23 20:00 93 L 10/19/23 18:54 97.8 F 65 18 108/58 L 96 10/19/23 18:30 97.8 F 60 18 114/66 97 10/19/23 18:00 97.8 F 59 L 18 128/67 96 10/19/23 17:30 97.8 F 61 17 130/69 95 10/19/23 17:19 10/19/23 17:00 97.8 F 53 L 17 113/69 97 10/19/23 16:30 97.8 F 55 L 17 124/68 95 10/19/23 16:19 95 10/19/23 16:16 10/19/23 16:15 97.8 F 56 L 16 116/63 94 L 10/19/23 16:00 60 10/19/23 16:00 97.8 F 52 L 17 115/59 L 94 L 10/19/23 15:45 97.8 F 55 L 17 103/59 L 93 L 10/19/23 15:30 97.8 F 56 L 17 105/60 L 95 10/19/23 15:25 98.4 F 57 L 17 108/65 L 96 10/19/23 15:20 98.4 F 56 L 18 100/57 L 94 L 10/19/23 15:15 98.8 F 58 L 17 108/55 L 93 L 10/19/23 13:20 97.9 F 68 18 143/75 H 10/19/23 12:01 15 127/72 94 L 10/19/23 11:44 98.2 F 66 15 156/81 H 98 O2 Del Method 10/20/23 09:00 Room Air 10/20/23 08:00 Room Air 10/20/23 08:00 10/20/23 07:00 Room Air 10/20/23 05:00 Room Air 10/20/23 04:00 10/20/23 03:00 Room Air 10/20/23 01:00 Room Air 10/20/23 00:00 10/20/23 00:00 Room Air 10/19/23 23:00 Room Air 10/19/23 22:00 Room Air 10/19/23 21:00 Room Air 10/19/23 21:00 Room Air 10/19/23 20:00 10/19/23 20:00 Room Air 10/19/23 20:00 Room Air 10/19/23 18:54 Room Air 10/19/23 18:30 Room Air 10/19/23 18:00 Room Air 10/19/23 17:30 Room Air 10/19/23 17:19 Room Air 10/19/23 17:00 Room Air 10/19/23 16:30 Room Air 10/19/23 16:19 Room Air 10/19/23 16:16 Room Air 10/19/23 16:15 Room Air 10/19/23 16:00 10/19/23 16:00 Room Air 10/19/23 15:45 Room Air 10/19/23 15:30 Room Air 10/19/23 15:25 Room Air 10/19/23 15:20 Room Air 10/19/23 15:15 Room Air 10/19/23 13:20 Room Air 10/19/23 12:01 Room Air 10/19/23 11:44 Room Air Intake and Output 10/19/23 10/20/23 10/20/23 23:59 07:59 15:59 Intake Total 340 / 490 150 / 600 450 / 600 Output Total 0 / 0 0 / 0 Balance 340 / 490 150 / 600 450 / 600 Intake: Intake, Oral Amount 340 / 490 150 / 600 450 / 600 Output: Output, Urine Amount 0 / 0 0 / 0 Other: Number of Unmeasured Voids 1 1 Number of Bowel Movements 1 Weight 198 lb 9.6 oz Patient Weight 10/20/23 23:59 Weight 198 lb 9.6 oz Laboratory Results - last 24 hr 10/19/23 11:50: WBC 7.0, RBC 4.49 L, Hgb 13.6 L, Hct 42.9, MCV 95.6 H, MCH 30.2, MCHC 31.6 L, RDW 15.5, Plt Count 190, MPV 10.4, Neut % (Auto) 65.3, Lymph % (Auto) 21.8, [place] % (Auto) 6.5, Eos % (Auto) 5.4, Baso % (Auto) 1.0, Neut # (Auto) 4.6, Lymph # (Auto) 1.5, [place] # (Auto) 0.5, Eos # (Auto) 0.4, Baso # (Auto) 0.1, Sodium 139, Potassium 4.3, Chloride 107, Carbon Dioxide 26, Anion Gap 10.3, BUN 23 H, Creatinine 1.20, Estimated Creat Clear 61, Estimated GFR 58 L, Est GFR ( Amer) 70, Glucose 93, Calcium 8.9, Magnesium 1.9, Total Bilirubin 0.8, AST 31, ALT 19, Alkaline Phosphatase 67, Troponin I 1.57 H, Total Protein 7.2, Albumin 4.3, Globulin 2.9, Albumin/Globulin Ratio 1.5, TSH 3.80, Thyroxine (T4) 8.4 I & O for Labs for Last 24 Hours: Intake & Output 10/17/23 10/18/23 10/19/23 10/20/23 23:59 23:59 23:59 23:59 Intake Total 340 / 490 600 / 600 Output Total 0 / 0 0 / 0 Balance 340 / 490 600 / 600 Weight 198 lb 4 oz 198 lb 9.6 oz Constitutional: Present no acute distress Respiratory: Present normal respiratory effort Cardiac: Present Reg Rate and Rhythm GI: Present normal bowel sounds; Absent tenderness Extremities: Present normal inspection and full ROM Skin: Present intact; Absent erythema Neuro: Present Grossly Intact and moves all extremities Assessment and Plan *Assessment and plan (1) NSTEMI (non-ST elevated myocardial infarction): Status: Acute Category: Medical Code(s): I21.4 - Non-ST elevation (NSTEMI) myocardial infarction (2) Elevated troponin: Status: Acute Category: Medical Code(s): R79.89 - Other specified abnormal findings of blood chemistry (3) Vascular ectasias: Status: Acute Category: Medical Code(s): I99.9 - Unspecified disorder of circulatory system (4) Chest pain: Status: Acute Qualifiers: Chest pain type: unspecified Qualified Code(s): R07.9 - Chest pain, unspecified Category: Medical Code(s): R07.9 - Chest pain, unspecified (5) Hyperlipidemia: Status: Chronic Qualifiers: Hyperlipidemia type: mixed hyperlipidemia Qualified Code(s): E78.2 - Mixed hyperlipidemia Category: Medical Code(s): E78.5 - Hyperlipidemia, unspecified (6) Dizziness: Status: Acute Category: Medical Code(s): R42 - Dizziness and giddiness (7) Hypothyroidism: Status: Acute Category: Medical Code(s): E03.9 - Hypothyroidism, unspecified Plan OK for discharge home with the addition of Lisinopril and Plavix. Follow up with cardiology in 7 to 10 days and at [facility] in 3 weeks.
--- NOTE | 2023-10-26 14:09 | P.DS_ITS ---
General Admission date:: 10/19/23 Discharge date: 10/20/23 HPI HPI HPI: Mr. Zaidi is an 83 year old patient of [facility] who presented tot he office today complaining of chest pain and dizziness off and on for the past week. His symptoms started while he was on vacation in [place]. He went to an emergency room there and was told that he was having a heart attack. He was treated with Aspirin and nirtroglycerin and his symptoms resolved. The provider there wanted to admit the patient to the hospital but he declined, and apparently signed out against medical advice. He spent a few more days in [place] before returning home. He states he had a return of symptoms this morning, which he describes as chest pressure and dizziness. He was evaluated in the office today and was directed to the ER at [facility]. 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 He previously had a left heart cath in 2017. Hospital Course Hospital Course Hospital Course: The patient was admitted after his left heart cath. It showed coronary artery disease unchanged from the 2017 cardiac cath which also had CATHLEEN I flow down the right coronary artery. He had a mildly elevated LVEDP. He also had a regional wall motion abnormality which was present in 2017 and was unchanged. He was started on new medications and was kept overnight. By 10/20/2023 he was feeling well and wanted to go home. He was stable to be discharged home with the addition of lisinopril and Plavix and will follow-up with cardiology in 7 to 10 days and [facility] in [facility] weeks. Exam Data for Last 24 hours Vital signs and Labs for Last 24 Hours: Temp Pulse Resp BP Pulse Ox O2 Del Method 98.0 F 83 20 133/65 92 L Room Air 10/20/23 08:00 10/20/23 08:00 10/20/23 08:00 10/20/23 08:00 10/20/23 08:00 10/20/23 09:00 Narrative: Constitutional Constitutional: no acute distress *Routine HEENT Exam Head: Present normocephalic Eye: Present EOMI and PERRL ENT: Present mucous membranes moist *Routine Neck Exam Neck: Present supple; Absent lymphadenopathy *Routine Respiratory Exam Respiratory: Present CTA bilaterally *Routine Cardiovascular Exam Cardiovascular: Present RRR *Routine Abdominal Exam Abdominal: Present soft and normoactive bowel sounds; Absent tenderness *Routine Rectal Exam Rectal:: deferred *Routine Genitalia Exam Genitalia:: deferred *Routine Extremities Exam Extremities: Absent cyanosis, clubbing or edema *Routine Skin Exam Skin: Present warm; Absent rash *Routine Neurological Exam Neurological: Present alert and oriented X3 DS: Diagnosis Discharge Diagnosis (1) NSTEMI (non-ST elevated myocardial infarction): Status: Acute Code(s): I21.4 - Non-ST elevation (NSTEMI) myocardial infarction (2) Elevated troponin: Status: Acute Code(s): R79.89 - Other specified abnormal findings of blood chemistry (3) Vascular ectasias: Status: Acute Code(s): I99.9 - Unspecified disorder of circulatory system (4) Chest pain: Status: Acute Code(s): R07.9 - Chest pain, unspecified Qualifiers: Chest pain type: unspecified Qualified Code(s): R07.9 - Chest pain, unspecified (5) Hyperlipidemia: Status: Chronic Code(s): E78.5 - Hyperlipidemia, unspecified Qualifiers: Hyperlipidemia type: mixed hyperlipidemia Qualified Code(s): E78.2 - Mixed hyperlipidemia (6) Dizziness: Status: Acute Code(s): R42 - Dizziness and giddiness (7) Hypothyroidism: Status: Acute Code(s): E03.9 - Hypothyroidism, unspecified Meds Home Medications and Allergies Home Medications ?Medication ?Instructions ?Recorded ?Confirmed ?Type tamsulosin 0.4 mg capsule (Flomax) 0.4 mg PO HS 03/21/17 10/25/23 History levothyroxine 25 mcg tablet 25 mcg PO DAILYDM 04/05/23 10/25/23 History metoprolol succinate 25 mg 25 mg PO DAILY 10/19/23 10/25/23 History tablet,extended release 24 hr nitroglycerin 0.4 mg sublingual 0.4 mg sublingual Q5MINP PRN Chest 10/19/23 10/25/23 History tablet Pain rosuvastatin 20 mg tablet 20 mg PO HS 10/19/23 10/25/23 History lisinopril 5 mg tablet 5 mg PO DAILY #90 tabs 10/20/23 10/25/23 Rx aspirin 81 mg tablet,delayed 81 mg PO DAILY #90 tabs 10/25/23 10/25/23 Rx release (Adult Low Dose Aspirin) clopidogrel 75 mg tablet 75 mg PO DAILY #90 tabs 10/25/23 10/25/23 Rx New Prescriptions to Start Prescriptions: lisinopril Bruce Hamilton Allergies Allergy/AdvReac Type Severity Reaction Status Date / Time No Known Allergies Allergy Verified 10/25/23 08:42 Discharge Plan Disposition Patient Disposition: Home, Self-Care Condition: Fair Follow up Plan Follow up with: Bruce Hamilton MD [Primary Care Provider] - 11/09/23 (please call for appointment) Alexis Ballard PA [Physician [employer]] - 10/29/23 (please call for appaointment) Prescriptions/Medication Reconciliation: New lisinopril 5 mg Tablet 5 mg PO DAILY Qty: 90 1RF Continued tamsulosin [Flomax] 0.4 mg capsule,extended release 24hr 0.4 mg PO HS levothyroxine 25 mcg tablet 25 mcg PO DAILYDM metoprolol succinate 25 mg tablet extended release 24 hr 25 mg PO DAILY rosuvastatin 20 mg tablet 20 mg PO HS nitroglycerin 0.4 mg tablet, sublingual 0.4 mg sublingual Q5MINP PRN (Reason: Chest Pain) No Action clopidogrel 75 mg tablet 75 mg PO DAILY Qty: 90 3RF aspirin [Adult Low Dose Aspirin] 81 mg tablet,delayed release (DR/EC) 81 mg PO DAILY Qty: 90 3RF Problem Reconciliation Problems Reviewed?: Yes Patient Discharge Instructions ACTIVITY: Limited activity DIET: cardiac Patient Instructions: DI for Cardiac Catheterization, DI for Surgical Site Infection Print Language: Yakut Providers Primary Care Provider: Bruce Hamilton Admit Provider: Bruce Hamilton Attending Provider: Bruce Hamilton
== END 2023-10-20 11:27 | disposition home or self-care (01) ==
LOC: ER 12:49 → CATHLAB 13:20 → 2ND 15:27
PROVIDERS: Internal Medicine; Admitting Provider Family Medicine; Emergency Provider Emergency Medicine; PCP Family Medicine; Visit Provider Family Medicine
DX: I21.4 Non-ST elevation (NSTEMI) myocardial infarction (principal); R07.9 Chest pain, unspecified; R79.89 Other specified abnormal findings of blood chemistry; I99.9 Unspecified disorder of circulatory system; E78.5 Hyperlipidemia, unspecified; R42 Dizziness and giddiness; E03.9 Hypothyroidism, unspecified; I10 Essential (primary) hypertension; K21.9 Gastro-esophageal reflux disease without esophagitis; Z79.899 Other long term (current) drug therapy
CPT/HCPCS: 71045; 80053; 83735; 84436; 84443; 84484; 85025; 93005; 93458; 99152; 99285; C1725; C1769; G0378; J1200; J1644; J2250; J3010; Q9967

== ENCOUNTER 2024-02-14 12:25 | Outpatient (CLI) | payer MEDICARE, SELFPAY ==
--- NOTE | 2024-02-14 12:39 | CA_ITS ---
APPROVED REPORT EXAM: Comprehensive 2D, Doppler, and color-flow Echocardiogram Sheet Cutter: Gabrielle Liang RVT Ht: 5 ft 10 in Wt: 200lbs BSA: 2.09 BP: 133/65 mmHg Indications: DIZZINESS,CAD,SOA,HTN,HLD,EX-SMOKER 2D Dimensions IVSd 0.64 cm M: 0.6-1.2 LVEF (Visual) 68.30 % PWd 0.88 cm M: 0.6 - 1.2 LA Volume 21.40 mL LVDd 3.29 cm M: 4.2 - 5.9 LA Volume Index 10.24 mL/m2 (M/F) 16-34 LVDs 2.07 cm M: 2.5 - 4.0 M-Mode Dimensions LA Diam 3.60 cm (1.9-4.0) TAPSE 2.30 (<1.7) LV Diastology E Decel Time 150 (160-240 msec) E/A Ratio 0.5 Aortic Valve AI PHT 991.00 ms AO Peak GR. 5.10 mmHg Mitral Valve MV E Max Ankush. 42.0 (40-130 cm/s) MV A Velocity 92.0 (40-130 cm/s) E/A Ratio 0.45 MV PHT 44.0 ms Pulmonary Valve PV Peak Velocity 57.0 (50-150 cm/s) Tricuspid Valve TR P. Velocity 179.00 cm/s RAP Estimate 10.00 mmHg RVSP 22.90 mmHg Left Ventricle The left ventricle is normal size. LVEDD=4.9 cm. LVESD=3.0 cm. The left ventricular systolic function is normal. The left ventricular ejection fraction is within the normal range. There is increased LV wall thickness. There is normal LV segmental wall motion. Transmitral Doppler flow pattern suggests impaired LV relaxation. LVEF is 55%. Right Ventricle The right ventricle is normal size. The right ventricular systolic function is normal. Atria The left atrium size is normal. The right atrium size is normal. There is no Doppler evidence of interatrial shunt. Aortic Valve The aortic valve is mildly thickened. There is no aortic valvular stenosis. Moderate aortic regurgitation. Mitral Valve The mitral valve is normal in structure. No evidence of mitral valve stenosis. Mild mitral regurgitation. Tricuspid Valve Tricuspid valve is grossly normal in structure and function. Trace tricuspid regurgitation. There is insufficient TR jet to estimate RVSP. Pulmonic Valve The pulmonary valve is normal in structure. Trace pulmonic regurgitation. Great Vessels The aortic root is normal in size. IVC is normal in size and collapses >50% with inspiration. Pericardium There is no pericardial effusion. Other Information Study Quality: Fair Conclusion Normal biventricular dimensions and systolic function. Moderate AI. Mild MR. Electronically signed by : Joy Giang MD 02/24/2024 14:03:30
== END 2024-02-14 23:59 | disposition home or self-care (01) ==
LOC: RT 12:27
PROVIDERS: PCP Family Medicine; Visit Provider Family Medicine
DX: I51.89 Other ill-defined heart diseases (principal); I77.89 Other specified disorders of arteries and arterioles; R42 Dizziness and giddiness
CPT/HCPCS: 93306

== ENCOUNTER 2024-07-21 13:55 | Emergency (ER) | payer MEDICARE, SELFPAY ==
--- OUTSIDE RECORDS SUMMARY | 2023-11-05 07:30 | XMS_ITS ---
Author Organization [facility] Address [address] [place] [id number] Care Team Providers Care Orthodontic Assistant Name Role Phone Joy Bruce Primary Care Provider [phone] Allergies No Known Allergies REASON FOR VISIT F/U Medications Medication SIG (Take, Route, Frequency, Duration) Notes Start Date End Date Status Tamsulosin HCl 0.4 MG 1 cap(s) orally on ce a day for 90 days Active Lisinopril 2.5 MG 1 tablet Orally ever y other day for 30 day(s) 11/05/2023 Active B-12 1000 MCG 1 tab(s) orally once a day OTC 06/23/2020 Active Rosuvastatin Calcium 20 MG 1 tab(s) oral ly once a day for 90 days Active Levothyroxine Sodium 25 MCG 1 tab(s) ora lly once a day for 90 days Active CPAP SUPPLIES DIRECTED 06/01/2014 Act chaparro Ibuprofen 200 MG 1 tab(s) orally ever y 6 hours Active Metoprolol Succinate ER 25 MG 1 tablet Orally every other day for 30 day(s) 11/05/2023 Active Aspir-Low 81 MG 1 tab(s) orally once a day Active CPAP MASK DIRECTED 09/15/2015 Active Clopidogrel Bisulfate 75 MG 1 tablet Ora lly Once a day for 30 day(s) Active Nitroglycerin 0.4 MG as directed Sublingual Active Betamethasone Dipropionate Aug 0.05 % 1 application Externally Once a day 11/05/2023 Active Problems Problem Type SNOMED Code ICD Code Onset Dates Problem Status W/U Status Risk Notes Problem [id number] 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 Vital Signs Blood pressure systolic 90 mm Hg 11/05/19 24 Blood pressure diastolic 54 mm Hg 024 Heart Rate 72 /min 11/05/2023 Height 70 in 11/05/2023 Weight 199.2 lbs 11/05/2023 BMI 28.58 kg/m2 11/05/2023 Encounters Encounter Location Date Provider Diagnosis [facility] [address] [place] [id number] 11/05/2023 Bruce Hamilton NSTEMI (non-ST eleva natalya myocardial infarction) I21.4 ; 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 and Rash R21 Assessments Encounter Date Diagnosis (ICD Code) Assessment Notes Treatment Notes Treatment Clinical Notes Section Notes 11/05/2023 NSTEMI (non-ST elevated myocardial infarction) (ICD-10 - I21.4) 11/05/2023 Coronary artery ectasia (ICD-10 - I77.89) 11/05/2023 Rash (ICD-10 - R21) Patient seems to have eczema Plan Of Treatment Medication Medication Name Sig Start Date Stop Date Notes Lisinopril 2.5 MG 1 tablet Orally ever y other day for 30 day(s) 11/05/2023 Metoprolol Tartrate 25 MG 1 tablet with food Orally Twice a day Lisinopril 5 MG 1 tablet Orally Once a day Metoprolol Succinate ER 25 MG 1 tablet O rally every other day for 30 day(s) 11/05/2023 Betamethasone Dipropionate A ug 0.05 % 1 application Externally Once a day 11/05/2023 Treatment Notes Assessment Notes Rash Patient seems to hav e eczema Next Appt Details Follow Up: 4 Weeks, Reason: Progress Notes * ELODIADejuanDOB:[birth year] (84 yo M)Acc No.[id number]:11/05/2023 Patient: Dejuan MÉNDEZ Provider: Marleny Hamilton M.D. :1940 A ge:83 Y S ex:Male Date:11/05/2023 Address:[facility] [address], [id number] Subjective: * Chief Complaints: * 1 . F/U. * HPI: H PI: 83 year old male presents with c/o Here for follow up on: 0 10/18- [facility] hospitalization, see pt docs. Pt was admitted for chest pain and did have a heart cath without stents. Pt states he has been having dizzy spells for the last couple days , worse when he stands or moves too fast . * ROS: D ERMATOLOGY: no R sherly. n o H charles. G ASTROENTEROLOGY: no N ausea. n o V omiting. U ROLOGY: no D ifficulty urinating. n o B lood in urine. * Medical History: S leep Apnea, Lumbar Disc Disease, Gallbladder Sludge, U/S 02/2015, LT Heart Cath, 02/2016, Non-Obstructive CAD, Hyperlipidemia, Cervical Disc Disease, CT scan 2021, Cervical spine osteoarthritis. * Surgical History: R T Eye Metal Foreign Body Removal 1986, Tonsillectomy 1950, Colonoscopy 2008, RT Knee Replacement 03/2011, LTKnee Replacement 12/2011, Upper GI - [place] , RT Hip Replacement 04/2020. * Hospitalization/Major Diagno stic Procedure: D enies Past Hospitalization. * Family History: F ather: , prostate cancer. M other: alive, colon cancer. 1 son(s) - healthy. . * Social History: C affeine: yes, frequency:1 cup of coffee. Past smoking status: yes, Pipe smoker x 10 years. Alcohol: Yes, Type: , Frequency: ,Years: , Determination:couple times a week. * Medications: T aking Metoprolol Tartrate 25 MG Tablet 1 tablet with food Orally Twice a day , Taking Clopidogrel Bisulfate 75 MG Tablet 1 tablet Orally Once a day , Taking Lisinopril 5 MG Tablet 1 tablet Orally Once a day , Taking Nitroglycerin 0.4 MG Tablet Sublingual as directed Sublingual , Taking Aspir-Low 81 MG Tablet Delayed Release 1 tab(s) orally once a day , Taking CPAP MASK DIRECTED , Taking CPAP SUPPLIES DIRECTED , Taking Ibuprofen 200 MG Tablet 1 tab(s) orally every 6 hours , Taking B-12 1000 MCG Tablet 1 tab(s) orally once a day , Notes to Pharmacist: OTC, Taking Rosuvastatin Calcium 20 MG Tablet 1 tab(s) orally once a day , Taking Levothyroxine Sodium 25 MCG Tablet 1 tab(s) orally once a day , Taking Tamsulosin HCl 0.4 MG Capsule 1 cap(s) orally once a day , Medication List reviewed and reconciled with the patient * Allergies: N .K.D.A. Objective: * Vitals: W t:199.2, Temp:98.0, BP:90/54, HR:72, Nurse:patt, Ht: 70, BMI:28.58. * Examination: G eneral Examination: General Appearance: N AD. Heart: R SR. Lungs: c lear to auscultation. Skin: s cattered dry patches of skin. ? Assessment: * Assessment: 1. N STEMI (non-ST elevated myocardial infarction) - I21.4 (Primary) 2 . 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 R sherly - R21 Plan: * Treatment: 2. R sherly Start Betamethasone Dipropionate Aug Ointment, 0.05 %, 1 application, Externally, Once a day, 30 grams, Refills 0. Notes: Patient seems to have eczema * Procedure Codes: G 2211 Complex e/m visit add on * Follow Up: 4 Weeks * Billing Information: * Visit Code: 63557 Office Visit, Est Pt., Level 3. * Procedure Codes: G2211 Complex e/m visit add on. * Electronic signature of Sheree Hamilton MD on 07/21/2024 at 03:05 PM EDT Sign off status: Pending * Provider: aMrleny Hamilton M.D. Date: 0 11/05/2023 Generated for Roberto leahy/Veronique/Miltonitting on: 0 07/21/2024 03:05 PM EDT History and Physical Notes * HPI (History of Present Illness) Category Sub-Category Detail Notes Category Not es HPI Here for follow up on: 10/18-2023 [facility] hospitalization, see pt docs. Pt was admitted for chest pain and did have a heart cath without stents. Pt states he has been having dizzy spells for the last couple days , worse when he stands or moves too fast Examination Category Sub-Category Detail Notes Category Not es General Examination Heart: RSR Lungs: clear to auscultatio n General Appearance: NAD Skin: scattered dry patche s of skin
--- OUTSIDE RECORDS SUMMARY | 2023-12-05 05:45 | XMS_ITS ---
Author Organization [facility] Address [address] [place] [id number] Care Team Providers Care Wastewater Plant Civil Engineer Name Role Phone Bruce Hamilton Primary Care Provider Allergies No Known Allergies Reason For Referral Reason Dr. Jong Patiño in [place] Diagnosis 1 Disorder of eye, rig ht (H57.9) Referral Organization [facility] Referring Provider First Name Bruce Referring Provider Last Name Joy Referring Provider Speciality [facility] Referred Provider Ophthalmology, . Referred Provider Specialty Ophthalmolog y General Notes Brenda Busch 024 11:51:49 AM > faxed to [facility] Referral Priority Routine REASON FOR VISIT 1 Month Follow Up Medications Medication SIG (Take, Route, Frequency, Duration) Notes Start Date End Date Status CPAP MASK DIRECTED 09/15/2015 Active CPAP SUPPLIES DIRECTED 06/01/2014 Act chaparro Ibuprofen 200 MG 1 tab(s) orally ever y 6 hours Active B-12 1000 MCG 1 tab(s) orally once a day OTC 06/23/2020 Active Levothyroxine Sodium 25 MCG 1 tab(s) ora lly once a day for 90 days Active Clopidogrel Bisulfate 75 MG 1 tablet Ora lly Once a day for 30 day(s) Active Nitroglycerin 0.4 MG as directed Sublingual Active Aspir-Low 81 MG 1 tab(s) orally once a day Active Tamsulosin HCl 0.4 MG 1 cap(s) orally on ce a day for 90 days Active Betamethasone Dipropionate Aug 0.05 % 1 application Externally Once a day 11/05/2023 Active Rosuvastatin Calcium 20 MG 1 tab(s) oral ly once a day for 90 days Active Vital Signs Blood pressure systolic 96 mm Hg 12/05/19 24 Blood pressure diastolic 58 mm Hg 024 Heart Rate 74 /min 12/05/2023 Height 70 in 12/05/2023 Weight 196.4 lbs 12/05/2023 BMI 28.18 kg/m2 12/05/2023 Encounters Encounter Location Date Provider Diagnosis [facility] [address] [place] [phone] 12/05/2023 Bruce Hamilton Dizziness R42 ; Symptomatic hypotension I95.9 and Disorder of eye, right H57.9 Assessments Encounter Date Diagnosis (ICD Code) Assessment Notes Treatment Notes Treatment Clinical Notes Section Notes 12/05/2023 Dizziness (ICD-10 - R42) 12/05/2023 Symptomatic hypotension (ICD-10 - I95.9) 12/05/2023 Disorder of eye, right (ICD-10 - H57.9) Plan Of Treatment Medication Medication Name Sig Start Date Stop Date Notes Metoprolol Succinate ER 25 MG 1 tablet O rally every other day 11/05/2023 Lisinopril 2.5 MG 1 tablet Orally ever y other day 11/05/2023 Referrals Referral Date Details 12/05/2023 12/05/2023, Dr. Jong Patiño in [place], . Ophthalmology Next Appt Details Follow Up: 2 Months, Reason: Progress Notes * Dejuan CHRISTOPHERDOB:[birth year] (84 yo M)Acc No.[id number]:12/05/2023 Progress Notes Patient: Dejuan MÉNDEZ Provider: Marleny Hamilton M.D. :1940 A ge:83 Y S ex:Male Date:12/05/2023 Address:[facility] [place], [id number] Subjective: * Chief Complaints: * 1 . 1 Month Follow Up. * HPI: C ardiology: 83 year old male presents with c/o Dizziness P t here for 1 mo f/u on dizziness. Pt states that he is still having dizzy spells and he has not noticed any improvement. Pt states dizziness is worse in the morning after he takes his medications. * ROS: D ERMATOLOGY: no R sherly. n o H cahrles. G ASTROENTEROLOGY: no N ausea. n o V omiting. U ROLOGY: no D ifficulty urinating. n o B lood in urine. * Medical History: S leep Apnea, Lumbar Disc Disease, Gallbladder Sludge, U/S 02/2015, LT Heart Cath, 02/2016, Non-Obstructive CAD, Hyperlipidemia, Cervical Disc Disease, CT scan 2021, Cervical spine osteoarthritis, Coronary Artery Disease, Myocardial Infarction - NSTEMI, 2023. * Surgical History: R T Eye Metal Foreign Body Removal 1986, Tonsillectomy 1950, Colonoscopy 2008, RT Knee Replacement 03/2011, LTKnee Replacement 12/2011, Upper GI - [place] , RT Hip Replacement 04/2020. * Hospitalization/Major [...] times a week. * Medications: T aking Clopidogrel Bisulfate 75 MG Tablet 1 tablet [...] day , Notes to Pharmacist: OTC, Taking Levothyroxine Sodium 25 MCG Tablet 1 tab(s) orally once a day , Taking Tamsulosin HCl 0.4 MG Capsule 1 cap(s) orally once a day , Taking Betamethasone Dipropionate Aug 0.05 % Ointment 1 application Externally Once a day , Taking Metoprolol Succinate ER 25 MG Tablet Extended Release 24 Hour 1 tablet Orally every other day , Taking Lisinopril 2.5 MG Tablet 1 tablet Orally every other day , Taking Rosuvastatin Calcium 20 MG Tablet 1 tab(s) orally once a day , Medication List reviewed and reconciled with the patient * Allergies: N .K.D.A. Objective: * Vitals: W t:196.4, Temp:98.0, BP:96/58, HR:74, Nurse:patt, Ht: 70, BMI:28.18. * Examination: C ardiology: General Appearance: p leasant, NAD. Heart sounds: R RR. Lungs: c lear, no rales or wheezes. Extremities: n o leg edema. Peripheral pulses: 2 plus bilateral. ? Assessment: * Assessment: 1. D izziness - R42 (Primary) 2 . S ymptomatic hypotension - I95.9 ? 3 . D isorder of eye, right - H57.9 Plan: * Treatment: 2. D isorder of eye, right Referral To:. Ophthalmology Ophthalmology Reason:Dr. Jong Patiño in [place] * Procedure Codes: G 2211 Complex e/m visit add on * Follow Up: 2 Months * Billing Information: * Visit Code: 49752 Office Visit, Est Pt., Level 3. * Procedure Codes: G2211 Complex e/m visit add on. * Electronic signature of Sheree Hamilton MD on 07/21/2024 at 03:05 PM EDT Sign off status: Pending * Provider: Marleny Hamilton M.D. Date: Generated for Roberto leahy/Veronique/Tylersmitting on: 0 07/21/2024 03:05 PM EDT History and Physical Notes * HPI (History of Present Illness) Category Sub-Category Detail Notes Category Not es Cardiology Dizziness Pt here for 1 mo f/u on dizziness. Pt states that he is still having dizzy spells and he has not noticed any improvement. Pt states dizziness is worse in the morning after he takes his medications Examination Category Sub-Category Detail Notes Category Not es Cardiology Lungs: clear, no rales or wheezes Heart sounds: RRR Extremities: no leg edema Peripheral pulses: 2 plus bilateral General Appearance: pleasant, NAD Consultation Request Notes Referral Date Referring Provider Referred Provider Not es 12/05/2023 Bruce Hamilton Ophthalmology, . Dr. Jong Patiño in [place]
--- OUTSIDE RECORDS SUMMARY | 2024-02-07 05:45 | XMS_ITS ---
[facility] [address] [place] [id number] Care Team Providers Care Pulmonologist Name Role Phone Bruce Hamilton Primary Care Provider Allergies No Known Allergies Results Component Value Reference Range Notes Urinalysis - Inhouse Reviewed date:02/07/2024 01:20:02 PM Interpretation: Performing Lab: Notes/Report: Color/Clarity yellow/clear Leuk Neg Nitrite Neg Urobili 3.2 Protein Neg pH 6.0 Blood Neg Sp. Gr. 1.015 Ketone Neg Bili Neg Gluc Neg CBC Venipuncture (in house) Reviewed date:02/07/2024 01:20:22 PM Interpretation:Normal Performing Lab: Notes/Report: Normal wbc 5.2 3.5 - 10 lymph 21.7% 15 - 50 mid 7.6% 2 - 15 gran 70.7% 35 - 80 rbc 4.29 3.5 - 5.5 hgb 13.1 11.5 - 16.5 hct 38.7 35 - 55 mcv 90.0 75 - 100 mch 30.6 25 - 35 mchc 34.0 31 - 38 platlet 168 100 - 400 P-Comprehensive Metabolic Pa sudarshan (CMP) Reviewed date:02/08/2024 09:08:35 AM Interpretation:bun 25, r 1.32, gfr 54 Performing Lab: Notes/Report: Test performed by [facility] [address] [place] [address] , [address], [place] [address] Fabien Cano MD, Bistro Attendant CLIA: [id number] Sodium 139 135-145 mmol/L Potassium 4.4 3.5-5.3 mmol/L Chloride 105 97-108 mmol/L CO2 23 22-32 mmol/L Glucose 96 65-99 mg/dL BUN 25 8-23 mg/dL Creatinine 1.32 0.70-1.30 mg/dL Calcium 9.2 8.6-10.4 mg/dL eGFR by Creatinine 54 >59 mL/min/1.73m2 Protein 6.5 6.0-8.3 g/dL Albumin 4.3 3.5-5.3 g/dL Alkaline Phosphatase 65 40-129 IU/L ALT (SGPT) 13 <5-55 IU/L AST (SGOT) 24 <5-46 IU/L Bilirubin, Total 0.8 <0.2-1.2 mg/dL A/G Ratio 2.0 1.1-2.5 P-T4 Free (thyroxine) Reviewed date:02/08/2024 09:08:35 AM Interpretation: Normal Performing Lab: Notes/Report: Test performed by [facility] [address] [place] [address] , [address], [place] [address] Fabien Cano MD, Bistro Attendant CLIA: [id number] Thyroxine Free (free T4) 1.01 0.86-1.76 ng/dL P-Lipid Panel Reviewed date:02/08/2024 09:08:35 AM Interpretation: Normal Performing Lab: Notes/Report: Test performed by [facility] [address] [place] [address] , [address], [place] [address] Fabien Cano MD, Bistro Attendant CLIA: [id number] Cholesterol 113 <200 mg/dL Triglycerides 86 <150 mg/dL HDL Cholesterol 42 >39 mg/dL Cholesterol / HDL Ratio 2.69 0.00-4.99 Ratio Non-HDL Cholesterol 71 <130 mg/dL LDL Cholesterol (Calculation) 54 <130 mg/dL LDL Cholesterol Levels* Less than 100 mg/dL Optimal 100 to 129 mg/dL Near Optimal/ Above Optimal 130 to 159 mg/dL Borderline High 160 to 189 mg/dL High 190 mg/dL and above Very High * Categories as recommended by the 2004 ATPIII guidelines LDL/HDL Ratio 1.3 <3.3 Ratio LDL Cholesterol Patient History Test Date: 04/02/2023 LDL Results: 49 Units: mg/dL % Change: - Test Date: 02/07/2024 LDL Results: 54 Units: mg/dL % Change: +10% P-Magnesium Reviewed date:02/08/2024 09:08:35 AM Interpretation: Normal Performing Lab: Notes/Report: Test performed by [facility] [address] [place] [address] [place] [address] Fabien Cano MD, Bistro Attendant CLIA: [id number] Magnesium 2.0 1.6-2.4 mg/dL P-Phosphorus Reviewed date:02/08/2024 09:08:35 AM Interpretation: Normal Performing Lab: Notes/Report: Test performed by [facility] [address] [place] [address] , [address], [place] [address] Fabien Cano MD, Bistro Attendant CLIA: [id number] Phosphorus 3.4 2.5-4.5 mg/dL P-TSH Reviewed date:02/08/2024 09:08:35 AM Interpretation: Normal Performing Lab: Notes/Report: Test performed by [employer] [employer] [facility] , [address], [place] [address] Fabien Cano MD, Bistro Attendant CLIA: [id number] TSH 3.62 0.43-5.25 mU/L Echocardiogram Reviewed date:02/25/2024 08:35:44 AM Interpretation:moderate AI, mild MR Performing Lab: Notes/Report: moderate AI, mild MR REASON FOR VISIT 2 months Medications Medication SIG (Take, Route, Frequency, Duration) Notes Start Date End Date Status Ibuprofen 200 MG 1 tab(s) orally ever y 6 hours Active B-12 1000 MCG 1 tab(s) orally once a day OTC 06/23/2020 Active Betamethasone Dipropionate Aug 0.05 % 1 application Externally Once a day 11/05/2023 Active CPAP MASK DIRECTED 09/15/2015 Active CPAP SUPPLIES DIRECTED 06/01/2014 Act chaparro Levothyroxine Sodium 25 MCG 1 tab(s) ora lly once a day Active Clopidogrel Bisulfate 75 MG 1 tablet Ora lly Once a day Active Tamsulosin HCl 0.4 MG 1 cap(s) orally on ce a day Active Nitroglycerin 0.4 MG as directed Sublingual Active Aspir-Low 81 MG 1 tab(s) orally once a day Active Rosuvastatin Calcium 20 MG 1 tab(s) oral ly once a day Active Problems Problem Type SNOMED Code ICD Code Onset Dates Problem Status W/U Status Risk Notes Problem [id number] Hypertriglycerid emia (E78.1) Active confirmed Problem 3688922 Diastolic dysfun ction (I51.89) Active confirmed Vital Signs Blood pressure systolic 110 mm Hg 02/06/19 25 Blood pressure diastolic 62 mm Hg 025 Heart Rate 81 /min 02/07/2024 Height 70 in 02/07/2024 Weight 200.4 lbs 02/07/2024 BMI 28.75 kg/m2 02/07/2024 Encounters Encounter Location Date Provider Diagnosis [facility] [address] [place], [place] [phone] 02/07/2024 Bruce [place] Hyperlipidemia, unsp ecified hyperlipidemia type E78.5 ; Hypertriglyceridemia E78.1 ; Acquired hypothyroidism E03.9 ; Dizziness R42 ; Cramp in lower leg R25.2 ; BPH (benign prostatic hyperplasia) N40.0 ; Unspecified sleep apnea G47.30 ; 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 and Diastolic dysfunction I51.89 Assessments Encounter Date Diagnosis (ICD Code) Assessment Notes Treatment Notes Treatment Clinical Notes Section Notes 02/07/2024 Hyperlipidemia, unspecified hyperlipidemia type (ICD-10 - E78.5) 02/07/2024 Hypertriglyceridemia (ICD-10 - E78.1) 02/07/2024 Acquired hypothyroid ism (ICD-10 - E03.9) 02/07/2024 Dizziness (ICD-10 - R42) 02/07/2024 Cramp in lower leg (ICD-10 - R25.2) 02/07/2024 BPH (benign prostati c hyperplasia) (ICD-10 - N40.0) 02/07/2024 Unspecified sleep ap dian (ICD-10 - G47.30) 02/07/2024 Coronary artery ecta jayant (ICD-10 - I77.89) 02/07/2024 Diastolic dysfunctio n (ICD-10 - I51.89) Plan Of Treatment Medication Medication Name Sig Start Date Stop Date Notes Levothyroxine Sodium 25 MCG 1 tab(s) orally once a day Clopidogrel Bisulfate 75 MG 1 tablet Orally Once a day Tamsulosin HCl 0.4 MG 1 cap(s) orally once a day Rosuvastatin Calcium 20 MG 1 tab(s) orally once a day Next Appt Details Follow Up: via phone to repo rt test results, 6 Months, Reason: Progress Notes * Dejuan CHRISTOPHERDOB:[birth year] (84 yo M)Acc No.[id number]:02/07/2024 Progress Notes Patient: Dejuan MÉNDEZ Provider: Marleny Hamilton M.D. :1940 A ge:84 Y S ex:Male Date:02/07/2024 Address:[facility] [facility] [place], [id number] Subjective: * Chief Complaints: * 1 . 2 months. * HPI: C ardiology: 84 year old male presents with c/o Dizziness P t here to f/u. Pt states he is still getting dizzy spells . Pt states he had a really bad one about a month ago and went down . Pt was at a wedding and felt like something was going to happen so he told people around him that he was going down , pt states they caught him from hitting ground and were able to sit him in a chair. * ROS: D ERMATOLOGY: no R sherly. [...] 03/2011, LTKnee Replacement 12/2011, Upper GI - [place] , RT Hip Replacement 04/2020. * Hospitalization/Major [...] day , Notes to Pharmacist: OTC, Taking Betamethasone Dipropionate Aug 0.05 % Ointment 1 application Externally Once a day , Taking Rosuvastatin Calcium 20 MG Tablet 1 tab(s) orally once a day , Taking Levothyroxine Sodium 25 MCG Tablet 1 tab(s) orally once a day , Taking Tamsulosin HCl 0.4 MG Capsule 1 cap(s) orally once a day , Medication List reviewed and reconciled with the patient * Allergies: N .K.D.A. Objective: * Vitals: W t:200.4, Temp:97.8, BP:110/62, HR:81, Nurse:patt, Ht: 70, BMI:28.75. * Examination: C ardiology: General Appearance: p leasant, NAD. Heart sounds: R RR. Lungs: c lear, no rales or wheezes. Extremities: n o leg edema. Peripheral pulses: 2 plus bilateral. ? Assessment: * Assessment: 1. H yperlipidemia, unspecified hyperlipidemia type - E78.5 (Primary) 2 . H ypertriglyceridemia - E78.1 3 . A cquired hypothyroidism - E03.9 ?4. D izziness - R42 5 . C ramp in lower leg - R25.2 6 . BPH (benign prostatic hyperplasia) - N40.0 7 . U nspecified sleep apnea - G47.30 8 . C oronary artery ectasia - I77.89 9 . D iastolic dysfunction - I51.89 Plan: * Treatment: Value Reference Range A /G Ratio 2.0 1.1-2.5 - * A lbumin 4.3 3.5-5.3 - g/dL * A lkaline Phosphatase 65 40-129 - IU/L * A LT (SGPT) 13 <5-55 - IU/L * A ST (SGOT) 24 <5-46 - IU/L * B ilirubin, Total 0.8 <0.2-1.2 - mg/dL * B UN 25 H 8-23 - mg/dL * C alcium 9.2 8.6-10.4 - mg/dL * C hloride 105 97-108 - mmol/L * C O2 23 22-32 - mmol/L * C reatinine 1.32 H 0.70-1.30 - mg/dL * G lucose 96 65-99 - mg/dL * P otassium 4.4 3.5-5.3 - mmol/L * S odium 139 135-145 - mmol/L * P rotein 6.5 6.0-8.3 - g/dL * e GFR by Creatinine 54 L >59 - mL/min/1.73m2 * Aspen Krause 02/08/2024 9:08:2 8 AM >See phone encounter ?LAB: P-Lipid Panel (Collection Date & Time - 02/07/2024 09:37 AM)?Normal* Value Reference Range C holesterol / HDL Ratio 2.69 0.00-4.99 - Ratio * C holesterol 113 <200 - mg/dL * H DL Cholesterol 42 >39 - mg/dL * L DL Cholesterol (Calculation) 54 <130 - mg/d L * L DL/HDL Ratio 1.3 <3.3 - Ratio * N on-HDL Cholesterol 71 <130 - mg/dL * T riglycerides 86 <150 - mg/dL * Aspen Krause 02/08/2024 9:08:2 8 AM >See phone encounter 2.?Acquired hypothyroidism? Continue Levothyroxine Sodium Tablet, 25 MCG, 1 tab(s), orally, once a day.?LAB: P-T4 Free (thyroxine) (Collection Date & Time - 02/07/2024 09:37 AM)? Normal* Value Reference Range T hyroxine Free (free T4) 1.01 0.86-1.76 - ng/d L * Aspen Krause 02/08/2024 9:08:2 8 AM >See phone encounter ?LAB: P-TSH (Collection Date & Time - 02/07/2024 09:37 AM)?Normal* Value Reference Range T SH 3.62 0.43-5.25 - mU/L * Aspen Krause 02/08/2024 9:08:2 8 AM >See phone encounter 3.?Dizziness?LAB: P-Comprehensive Metabolic Panel (CMP) (Collection Date & Time - 02/07/2024 09:37 AM)?bun 25, r 1.32, gfr 54* Value Reference Range A /G Ratio 2.0 1.1-2.5 - * A lbumin 4.3 3.5-5.3 - g/dL * A lkaline Phosphatase 65 40-129 - IU/L * A LT (SGPT) 13 <5-55 - IU/L * A ST (SGOT) 24 <5-46 - IU/L * B ilirubin, Total 0.8 <0.2-1.2 - mg/dL * B UN 25 H 8-23 - mg/dL * C alcium 9.2 8.6-10.4 - mg/dL * C hloride 105 97-108 - mmol/L * C O2 23 22-32 - mmol/L * C reatinine 1.32 H 0.70-1.30 - mg/dL * G lucose 96 65-99 - mg/dL * P otassium 4.4 3.5-5.3 - mmol/L * S odium 139 135-145 - mmol/L * P rotein 6.5 6.0-8.3 - g/dL * e GFR by Creatinine 54 L >59 - mL/min/1.73m2 * Aspen Krause 02/08/2024 9:08:2 8 AM >See phone encounter ?LAB: Urinalysis - Inhouse (Collection Date & Time - 02/07/2024)* Value Reference Range C olor/Clarity yellow/clear * L euk Neg * N itrite Neg * U robili 3.2 * P rotein Neg * p H 6.0 * B lood Neg * S p. Gr. 1.015 * K etone Neg * B tyler Neg * G patsy Neg * Soha Santos 02/07/2024 10:57:56 AM > ?LAB: CBC Venipuncture (in house) (Collection Date & Time - 02/07/2024)? Normal* Value Reference Range w bc 5.2 3.5 - 10 * l ymph 21.7% 15 - 50 * m id 7.6% 2 - 15 * g ran 70.7% 35 - 80 * r bc 4.29 3.5 - 5.5 * h gb 13.1 11.5 - 16.5 * h ct 38.7 35 - 55 * m cv 90.0 75 - 100 * m ch 30.6 25 - 35 * m chc 34.0 31 - 38 * p latlet 168 100 - 400 * Soha Santos 02/07/2024 10:59:00 AM > ?Imaging: Echocardiogram (Performed Date - 02/14/2024)?moderate AI, mild MR * Brenda Busch 02/07/2024 11:17: 57 AM > auth#[id number]; valid 02/07/2024 through 05/06/2024; CPT code 91599; faxed to [facility] Jeanine Naik 02/08/2024 9:12:23 AM > appt 02/14/2024 @ 1:00Aspen Krause 02/25/2024 8:35:41 AM > , See phone encounter 4.?Cramp in lower leg?LAB: P-Magnesium (Collection Date & Time - 02/07/2024 09:37 AM)?Normal* Value Reference Range M agnesium 2.0 1.6-2.4 - mg/dL * Aspen Krause 02/08/2024 9:08:2 8 AM >See phone encounter ?LAB: P-Phosphorus (Collection Date & Time - 02/07/2024 09:37 AM)?Normal* Value Reference Range P hosphorus 3.4 2.5-4.5 - mg/dL * Aspen Krause 02/08/2024 9:08:2 8 AM >See phone encounter 5.?BPH (benign prostatic hyperplasia)? Continue Tamsulosin HCl Capsule, 0.4 MG, 1 cap(s), orally, once a day.?? 6.?Coronary artery ectasia? Continue Clopidogrel Bisulfate Tablet, 75 MG, 1 tablet, Orally, Once a day.?Imaging: Echocardiogram (Performed Date - 02/14/2024)?moderate AI, mild MR * Brenda Busch 02/07/2024 11:17: 57 AM > auth#[id number]; valid 02/07/2024 through 05/06/2024; CPT code 15867; faxed to [facility] Jeanine Naik 02/08/2024 9:12:23 AM > appt 02/14/2024 @ 1:00Aspen Krause 02/25/2024 8:35:41 AM > , See phone encounter 7.?Diastolic dysfunction?Imaging: Echocardiogram (Performed Date - 02/14/2024)?moderate AI, mild MR * Brenda Busch 02/07/2024 11:17: 57 AM > auth#[id number]; valid 02/07/2024 through 05/06/2024; CPT code 16210; faxed to [facility] ShelleyJeanine Stevenson Ann 02/08/2024 9:12:23 AM > appt 02/14/2024 @ 1:00NelidaAspen 02/25/2024 8:35:41 AM > , See phone encounter * Procedure Codes: G 2211 Complex e/[place], [address] Urinalysis, no micro, [address] CBC WITH AUTO DIFF * Follow Up: v ia phone to report test results, 6 Months * Billing Information: * Visit Code: 66042 Office Visit, Est Pt., Level 4. * Procedure Codes: G2211 Complex e/[place] [address] Urinalysis, no micro. 62961 CBC WITH AUTO DIFF. * Electronic signature of Sheree Hamilton MD on 07/21/2024 at 03:05 PM EDT Sign off status: Pending * Provider: Marleny Hamilton M.D. Date: 0 02/07/2024 Generated for Roberto leahy/Veronique/Gilberto on: 0 07/21/2024 03:05 PM EDT History and Physical Notes * HPI (History of Present Illness) Category Sub-Category Detail Notes Category Not es Cardiology Dizziness Pt here to f/u. Pt states he is still getting dizzy spells . Pt states he had a really bad one about a month ago and went down . Pt was at a wedding and felt like something was going to happen so he told people around him that he was going down , pt states they caught him from hitting ground and were able to sit him in a chair Examination Category Sub-Category Detail Notes Category Not es Cardiology Lungs: clear, no rales or wheezes Heart sounds: RRR Extremities: no leg edema Peripheral pulses: 2 plus bilateral General Appearance: pleasant, NAD
[2024-07-21 14:50] VITALS: BP 129/79; PULSE 87; RESP 18; TEMP 36.7; O2SAT 95; BMI 26.8
[2024-07-21 15:00] VITALS: BP 120/70; PULSE 77; O2SAT 95
--- OUTSIDE RECORDS SUMMARY | 2024-07-21 15:05 | XMS_ITS | Patient Health Record ---
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 Name Role Phone GrandviewArchana alstonian Primary Care Provider [phone] Allergies No Known Allergies Results Component Value Reference Range Notes Echocardiogram Reviewed date:02/25/2024 08:35:44 AM Interpretation:moderate AI, mild MR Performing Lab: Notes/Report: moderate AI, mild MR P-TSH Reviewed date:02/08/2024 09:08:35 AM Interpretation: Normal Performing Lab: Notes/Report: Test performed by [facility] [address] , [address], [place] [address] Fabien Cano MD, [employer] CLIA: [id number] TSH 3.62 0.43-5.25 mU/L P-Phosphorus Reviewed date:02/08/2024 09:08:35 AM Interpretation: Normal Performing Lab: Notes/Report: Test performed by [facility] [address] [place] [address] , [address], [place] [address] Fabien Cano MD, [employer] Tender CLIA: [id number] Phosphorus 3.4 2.5-4.5 mg/dL P-Magnesium Reviewed date:02/08/2024 09:08:35 AM Interpretation: Normal Performing Lab: Notes/Report: Test performed by [facility] [address] [place] [address] , [address], [place] [address] Fabien Cano MD, [employer] Tender CLIA: [id number] Magnesium 2.0 1.6-2.4 mg/dL P-Lipid Panel Reviewed date:02/08/2024 09:08:35 AM Interpretation: Normal Performing Lab: Notes/Report: Test performed by [facility], [facility] [address] [facility] , [address], [place] [address] Fabien Cano MD, [employer] Tender CLIA: [id number] Cholesterol 113 <200 mg/dL Triglycerides 86 <150 [...] Results: 54 Units: mg/dL % Change: +10% P-T4 Free (thyroxine) Reviewed date:02/08/2024 09:08:35 AM Interpretation: Normal Performing Lab: Notes/Report: Test performed by [facility] [address] , [address], [place] [address] Fabien Cano MD, [employer] Tender CLIA: [id number] Thyroxine Free (free T4) 1.01 0.86-1.76 ng/dL P-Comprehensive Metabolic Pa sudarshan (CMP) Reviewed date:02/08/2024 09:08:35 AM Interpretation:bun 25, r 1.32, gfr 54 Performing Lab: Notes/Report: Test performed by [facility] [address] , [address], [place] [address] Fabien Cano MD, [employer] Tender CLIA: [id number] Sodium 139 135-145 mmol/L Potassium 4.4 3.5-5.3 [...] 0.8 <0.2-1.2 mg/dL A/G Ratio 2.0 1.1-2.5 CBC Venipuncture (in house) Reviewed date:02/07/2024 01:20:22 [...] - 38 platlet 168 100 - 400 Urinalysis - Inhouse Reviewed date:02/07/2024 01:20:02 PM Interpretation: Performing Lab: Notes/Report: Color/Clarity yellow/clear Leuk Neg Nitrite Neg Urobili 3.2 Protein Neg pH 6.0 Blood Neg Sp. Gr. 1.015 Ketone Neg Bili Neg Gluc Neg Medications Medication SIG (Take, Route, Frequency, Duration) Notes Start Date End Date Status Ibuprofen 200 MG 1 tab(s) orally ever y 6 hours Active B-12 1000 MCG 1 tab(s) orally once a day OTC 06/23/2020 Active Betamethasone Dipropionate Aug 0.05 % 1 application Externally Once a day 11/05/2023 Active Tamsulosin HCl 0.4 MG 1 cap(s) orally on ce a day for 30 days Active Clopidogrel Bisulfate 75 MG 1 tablet Ora lly Once a day for 30 days Active Nitroglycerin 0.4 MG as directed Sublingual Active Aspir-Low 81 MG 1 tab(s) orally once a day Active CPAP MASK DIRECTED 09/15/2015 Active Levothyroxine Sodium 25 MCG 1 tab(s) ora lly once a day for 30 days Active CPAP SUPPLIES DIRECTED 06/01/2014 Act chaparro Rosuvastatin Calcium 20 MG 1 tab(s) oral ly once a day for 90 days Active Immunizations Vaccine Route Administration Date Status Comme nts jNmexyou-pmgbuuyag-bpkqxxi e pts. IM Intramuscular 01/08/2014 Administered xFlu shot- 6months-36 months of cvi-YIDC-OBNG-trivalent Unknown 10/23/2019 Administered xAdministration of injection Unknown 02/28/2016 Administered Shingrix IM Intramuscular 10/29/2017 Administered Prevnar (PCV20) IM Intramuscular 02/07/2022 Administered Fluzone High Dose (65yr and older) IM Intramuscular 10/07/2016 Administered Fluzone High Dose (65yr and older) IM Intramuscular 10/25/2017 Administered Fluzone High Dose (65yr and older) Unknown 10/13/2020 Administered Fluzone High Dose (65yr and older) Unknown 11/29/2021 Administered COVID 19 Moderna Unknown 02/19/2020 Administered COVID 19 Moderna Unknown 03/17/2020 Administered COVID 19 Moderna Unknown 04/28/2021 Administered Problems Problem Type SNOMED Code ICD Code Onset Dates Problem Status W/U Status Risk Notes Problem 169981613 Hypertriglycerid emia (E78.1) Active confirmed Problem 40578302 NSTEMI (non-ST elevated myocardial infarction) (I21.4) Active confirmed Problem 503631568 BPH (benign pros tatic hyperplasia) (N40.0) Active confirmed Problem 719417392 Cervical disc di sease (M50.90) Active confirmed Problem 343165482 Acquired hypothyroidism (E03.9) Active confirmed Problem 79763085 Hyperlipidemia, unspecified hyperlipidemia type (E78.5) Active confirmed Problem 09614500 Unspecified slee p apnea (G47.30) Active confirmed Problem 796035671 Lung nodule seen on imaging study (R91.1) Active confirmed Problem 684703542 Pure hypercholesterolemia (E78.00) Active confirmed Problem 7834598 Diastolic dysfun ction (I51.89) Active confirmed Problem 1874025345842572 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) Active confirmed Problem 507789328 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) Active confirmed Problem 525178861 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 Vital Signs Heart Rate 81 /min 02/07/2024 Blood pressure diastolic 62 mm Hg 02/07/2024 Height 70 in 02/07/2024 Blood pressure systolic 110 mm Hg 02/07/2024 Weight 200.4 lbs 02/07/2024 BMI 28.75 kg/m2 02/07/2024 Encounters Encounter Location Date Provider Diagnosis [facility] [address] [place], [place] [id number] 10/19/2023 Bruce [facility]view Chest pain, unspecif ied type R07.9 [facility] [address] [place], [place] [id number] 11/05/2023 Bruce Grandview NSTEMI (non-ST eleva natalya myocardial infarction) I21.4 ; 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 and Rash R21 [facility] [address] [place], [place] [id number] 12/05/2023 Bruce Grandview Dizziness R42 ; Symp tomatic hypotension I95.9 and Disorder of eye, right H57.9 [facility] [address] [place], [place] [id number] 02/07/2024 Bruce Grandview Hyperlipidemia, unsp ecified hyperlipidemia type E78.5 ; Hypertriglyceridemia E78.1 ; Acquired hypothyroidism E03.9 ; Dizziness R42 ; Cramp in lower leg R25.2 ; BPH (benign prostatic hyperplasia) N40.0 ; Unspecified sleep apnea G47.30 ; 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 and Diastolic dysfunction I51.89 [facility] [address] [place], [place] [id number] 11/29/2023 Bruce Grandview Pure hypercholestero lemia E78.00 [facility] [address] [place], [place] [id number] 01/10/2024 Bruce Grandview [facility] [address] [place], [place] [id number] 02/08/2024 Bruce Grandview [facility] [address] [place], [place] [id number] 02/25/2024 Bruce Grandview [facility] [address] [place], [place] [id number] 04/24/2024 Bruce Grandview Coronary artery ecta jayant I77.89 [facility] [address] [place], [place] [id number] 06/03/2024 Bruce Grandview Hyperlipidemia, unsp ecified hyperlipidemia type E78.5 [facility] [address] [place], [place] [id number] 07/15/2024 Bruce Grandview Acquired hypothyroid ism E03.9 ; 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 and BPH (benign prostatic hyperplasia) N40.0 Assessments Encounter Date Diagnosis (ICD Code) Assessment Notes Treatment Notes Treatment Clinical Notes Section Notes 11/05/2023 NSTEMI (non-ST eleva natalya myocardial infarction) (ICD-10 - I21.4) 11/05/2023 Coronary artery ecta jayant (ICD-10 - I77.89) 11/29/2023 Pure hypercholesterolemia (ICD-10 - E78.00) 12/05/2023 Dizziness (ICD-10 - R42) 12/05/2023 Symptomatic hypotens ion (ICD-10 - I95.9) 10/19/2023 Chest pain, unspecif ied type (ICD-10 - R07.9) Took patient to ER, troponin was elevated, he went for left heart cath and then was admitted to [facility] 02/07/2024 Hypertriglyceridemia (ICD-10 - E78.1) 02/07/2024 Hyperlipidemia, unspecified hyperlipidemia type (ICD-10 - E78.5) 04/24/2024 Coronary artery ecta jayant (ICD-10 - I77.89) 06/03/2024 Hyperlipidemia, unspecified hyperlipidemia type (ICD-10 - E78.5) 07/15/2024 Acquired hypothyroid ism (ICD-10 - E03.9) 07/15/2024 Coronary artery ecta jayant (ICD-10 - I77.89) 02/07/2024 Acquired hypothyroid ism (ICD-10 - E03.9) 11/05/2023 Rash (ICD-10 - R21) Patient seems to have eczema 12/05/2023 Disorder of eye, rig ht (ICD-10 - H57.9) 02/07/2024 Dizziness (ICD-10 - R42) 07/15/2024 BPH (benign prostati c hyperplasia) (ICD-10 - N40.0) 02/07/2024 Cramp in lower leg (ICD-10 - R25.2) 02/07/2024 BPH (benign prostati c hyperplasia) (ICD-10 - N40.0) 02/07/2024 Unspecified sleep ap dian (ICD-10 - G47.30) 02/07/2024 Coronary artery ecta jayant (ICD-10 - I77.89) 02/07/2024 Diastolic dysfunctio n (ICD-10 - I51.89) Plan Of Treatment Pending Test Test Name Order Date X ray : Hip, right 02/02/2020 Insurance Providers Payer Name Payer Address Payer Phone Subscriber Number Group Number Insured Name Patient Relationship to Insured Coverage Start Date Coverage End Date [employer] [address] [place] [address] [id number] Dejuan Christopher Self - patient is the insured Medical (General) History Medical History History ICD Code Sleep Apnea Lumbar Disc Disease Gallbladder Sludge, U/S 02/2015 LT Heart Cath, 02/2016, Non-Obstructive CAD Hyperlipidemia Cervical Disc Disease, CT scan 2021 Cervical spine osteoarthritis Coronary Artery Disease Myocardial Infarction - NSTEMI, 2023 Surgical History Surgery Date(Month/Year) RT Eye Metal Foreign Body Removal 1986 Tonsillectomy 1950 Colonoscopy 2008 RT Knee Replacement 03/2011 LTKnee Replacement 12/2011 Upper GI - [place] RT Hip Replacement 04/2020 Hospitalization History Reason Date(Month/Year)
--- NOTE | 2024-07-21 15:07 | CT_ITS ---
FINAL REPORT TECHNIQUE: Axial CT images were performed through the head. Coronal reformatted images were submitted. This study was performed with techniques to keep radiation doses as low as reasonably achievable (ALARA). Individualized dose reduction techniques using automated exposure control or adjustment of mA and/or kV according to the patient's size were employed. CLINICAL HISTORY: Fall, struck head COMPARISON: None FINDINGS: There is mild to moderate atrophy. There is no evidence of hemorrhage, mass effect, or edema. There are postsurgical changes in the right orbit. The paranasal sinuses are well aerated. IMPRESSION: Mild to moderate atrophy without acute abnormality. Reviewed, Interpreted and Dictated by Armaan Banks MD Transcribed by Mireya Patel Authenticated and [facility]
--- NOTE | 2024-07-21 15:09 | CT_ITS ---
FINAL REPORT TECHNIQUE: Axial images were obtained of the cervical spine by computed tomography. Coronal and sagittal reconstruction process performed. This study was performed with techniques to keep radiation doses as low as reasonably achievable (ALARA). Individualized dose reduction techniques using automated exposure control or adjustment of mA and/or kV according to the patient's size were employed. CLINICAL HISTORY: Fall COMPARISON: 12/19/2021 FINDINGS: Cervical vertebrae show normal height. There is abnormal disc space narrowing at C2-3, C3-4, C4-5, C5-6, C6-7, and C7-T1. There is no malalignment. There are endplate hypertrophic changes throughout the cervical spine. The endplate hypertrophy is particularly evident eccentric to the right at C3-4 with high-grade right neural foraminal narrowing. There is mild to moderate bilateral neural foraminal narrowing at C5-6 and C6-7. There is bilateral facet hypertrophy throughout the cervical spine. IMPRESSION: Degenerative changes without acute abnormality. Reviewed, Interpreted and Dictated by Armaan Banks MD Transcribed by Mireya Patel Authenticated and [facility]
--- NOTE | 2024-07-21 15:17 | HMH.EDGENADL ---
Discharge Plan Disposition Patient Disposition: Home, Self-Care Condition: Good Prescriptions Prescriptions: No Action tamsulosin [Flomax] 0.4 mg capsule,extended release 24hr 0.4 mg PO HS clopidogrel 75 mg tablet 75 mg PO DAILY Qty: 90 3RF aspirin [Adult Low Dose Aspirin] 81 mg tablet,delayed release (DR/EC) 81 mg PO DAILY Qty: 90 3RF levothyroxine 25 mcg tablet 25 mcg PO DAILYDM metoprolol succinate 25 mg tablet extended release 24 hr 25 mg PO DAILY rosuvastatin 20 mg tablet 20 mg PO HS nitroglycerin 0.4 mg tablet, sublingual 0.4 mg sublingual Q5MINP PRN (Reason: Chest Pain) lisinopril 5 mg Tablet 5 mg PO DAILY Qty: 90 1RF Referrals Follow up/Referrals: Bruce Hamilton MD [Primary Care Provider, Medical] - See instructions Activity Restrictions/Add. Instructions Additional Instructions/Restrictions: Please utilize your eyedrops as follows neomycin/polymyxin B ophthalmic drops, 1-2 drops affected eye every 4 hours for 7 days or until ophthalmologic/optometry follow-up, I will also prescribe erythromycin ointment 4 times daily for 5 days or until ophthalmologic appointment, please place around affected eye, please follow-up with your PCP and eye doctor in the upcoming days/weeks, please return to the emergency department any worsening signs or symptoms. 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 by RN): PT REPORTS FOREIGN BODY SENSATION TO RIGHT EYE, INTERMITTENT FOR ABOUT 2 MONTHS. REPORTS HX OF RETINAL DETACHMENT IN PAST. PT HAS POOR EYE SIGHT SINCE. NO KNOWN INJURY History of Present Illness HPI narrative: 84-year-old male presents to the emergency department with sharp sensation/foreign body sensation to the right eye, intermittent for the last 2 months, worsened within the last several days, has had some decreased visual acuity for the last 1 to 2 years, has remote history of retinal detachment and the right eye, due to metal , getting it. 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 Denies any alcohol or drug use initial triage vitals are unremarkable. Onset (ago): month(s) Related Data Home Medications ?Medication ?Instructions ?Recorded ?Confirmed tamsulosin 0.4 mg capsule (Flomax) 0.4 mg PO HS 03/21/17 04/23/24 levothyroxine 25 mcg tablet 25 mcg PO DAILYDM 04/05/23 04/23/24 metoprolol succinate 25 mg 25 mg PO DAILY 10/19/23 04/23/24 tablet,extended release 24 hr nitroglycerin 0.4 mg sublingual 0.4 mg sublingual Q5MINP PRN Chest 10/19/23 04/23/24 tablet Pain rosuvastatin 20 mg tablet 20 mg PO HS 10/19/23 04/23/24 Previous Rx's ?Medication ?Instructions ?Recorded lisinopril 5 mg tablet 5 mg PO DAILY #90 tabs 10/20/23 aspirin 81 mg tablet,delayed 81 mg PO DAILY #90 tabs 10/25/23 release (Adult Low Dose Aspirin) clopidogrel 75 mg tablet 75 mg PO DAILY #90 tabs 10/25/23 Allergies Allergy/AdvReac Type Severity Reaction Status Date / Time No Known Allergies Allergy Verified 04/23/24 08:29 [facility] <MICHAEL Walker - Last Filed: 07/21/24 16:56> [facility] Disclaimer: The information contained in this section may have been updated after the patient was seen, as this information can be updated by other users. Medical History BPH (benign prostatic hyperplasia) Hypothyroidism Hyperlipidemia History of left heart catheterization (LHC) PVC (premature ventricular contraction) Palpitations Chest pain Dizziness Surgical History History of knee replacement History of right hip replacement Family History Other No significant family history Social History Smoking Status: Unknown if ever smoked alcohol intake: current alcohol intake frequency: a few times a month substance use type: denies use current occupational status: retired Travel in the last 8 weeks?: Inside the [place] Have you lived/traveled outside US in past 30 days?: No Contact w/someone who lives/traveled outside US past 30 days?: No Exposure to someone with infectious disease in past 14 days?: No Do you have a fever (greater than 100.4 F or 38 C)?: No Have you tested positive for COVID-19?: No Exposed to someone with COVID-19 in past 14 days?: No Do you have a sore throat?: No Do you have a cough?: No Do you have any weakness?: No Do you have any diarrhea?: No Are you experiencing any unusual bleeding?: No Do you have any muscle aches/pain?: No Do you have any abdominal pain?: No Are you experiencing loss of taste or smell?: No Other Medical History Have you received the Flu Vaccine for this season: No Have you received the Pneumonia Vaccine: No <MICHAEL Walker - Last Filed: 07/21/24 16:56> ROS Obtained: Yes All systems reviewed & no additional complaints except as documented Physical Exam <MICHAEL Walekr - Last Filed: 07/21/24 16:56> General General appearance: alert and in no apparent distress Head Head exam: atraumatic, normocephalic and other (Area of ecchymosis to the right mormon region) Eye Eye exam: Present EOMI (EOMs are intact but does have a hazy appearing cornea and difficulty moving the eye on the right), miosis and other (There is some enophthalmos noted on the right eye, patient has some decreased peripheral vision/visual acuity in the right eye, response to light, and intention threat, small corneal defect noted centrally around 3 PM on 9 fluorescein dye exam); Absent PERRL, scleral icterus, conjunctival redness, periorbital swelling or periorbital tenderness ENT ENT exam: Present mucous membranes moist Neck Neck exam: Present normal inspection Chest Chest inspection: Present normal inspection and symmetric chest wall rise Respiratory Respiratory exam: Present normal lung sounds bilaterally; Absent respiratory distress Cardiovascular Cardiovascular exam: Present regular rate and normal rhythm Abdominal Exam Abdominal exam: Present soft; Absent tenderness Extremities Exam Extremities exam: Present normal inspection Neurological Exam Neurological exam: Present alert and oriented X3 Psychiatric Psychiatric exam: Present normal affect Skin Skin exam: Present warm and dry Medical Decision Making <MICHAEL Walker - Last Filed: 07/21/24 16:56> Medical Records Medical records reviewed: Yes I reviewed the patient's medical records. Screening: Per USPSTF and CDC recommendations, given the prevalence of disease in our region, it is our hospital?s policy to screen for HIV and viral Hepatitis for all patients aged 18 and over and those with ongoing risk factors. Fei Inquiry Pt receiving controlled substance: No Fei was queried for this patient: No Vital Signs: 07/21/24 14:50 07/21/24 15:00 07/21/24 15:30 Temperature 98.0 F Temperature Source Oral Pulse Rate 77 81 Pulse Rate [Radial] 87 Respiratory Rate 18 Blood Pressure 120/70 114/72 Blood Pressure [Right Arm] 129/79 Blood Pressure Mean [Right Arm] 95 Blood Pressure Source Blood Pressure Source [Right Arm] Automatic Cuff Blood Pressure Position Blood Pressure Position [Right Arm] Sitting 02 Sat by Pulse Oximetry 95 95 98 Oxygen Delivery Method Room Air 07/21/24 17:03 07/21/24 17:07 Temperature 97.9 F 98.0 F Temperature Source Oral Oral Pulse Rate 66 75 Pulse Rate [Radial] Respiratory Rate 18 18 Blood Pressure 144/70 H 157/74 H Blood Pressure [Right Arm] Blood Pressure Mean [Right Arm] Blood Pressure Source Automatic Cuff Automatic Cuff Blood Pressure Source [Right Arm] Blood Pressure Position Sitting Blood Pressure Position [Right Arm] 02 Sat by Pulse Oximetry Oxygen Delivery Method Room Air Room Air Orders (Tests/Meds): ED MEDICATIONS Discontinued Medications Generic Name Dose Route Start Last Admin Trade Name Freq PRN Reason Stop Dose Admin Erythromycin 1 gm 07/21/24 17:00 07/21/24 17:02 Erythromycin Base 1 Gm Oint...G. OP 07/21/24 17:01 1 gm ONCE ONE Administration Fluorescein Sodium 1 mg 07/21/24 17:00 07/21/24 17:02 Fluorescein Sodium 1mg Strip OP 07/21/24 17:01 1 mg ONCE ONE Administration Neomycin/Polymyxin/Gramicidin 0 ml 07/21/24 17:00 07/21/24 17:02 Fduqcrpm-Qjwnxr-Jziz Ophth Soln 10ml Bottle OP 07/21/24 17:01 1 ml ONCE ONE Administration ORDERS Category Date Time Status CT cervical spine wo con Stat Cat Scan 07/21/24 15:[address] head/brain wo con Stat Cat Scan 07/21/24 15:07 Completed Medical Decision Narrative: 84-year-old male presents to the emergency department with right eye pain and decreased visual acuity, see HPI for detail past medical history, differential diagnose include not limited to keratitis, iritis, corneal abrasion, closed head injury, acute SDH, traumatic SAH, among others. Discussed patient case with temperature Dr. Wilhelm Will obtain CT head without contrast, CT cervical spine without contrast, and perform fluorescein test of the eye. I along with the attending physician Dr. Wilhelm performed fluorescein dye test, there are corneal abrasions/fluorescein dye uptake at approximately 2 PM, in the center of the pupil, and around 8/7:30 PM on the surface of the eye, will prescribe neomycin/polymyxin B ophthalmic drops, 1-2 GTTs affected eye every 4 for 7 days or until ophthalmologic/optometry follow-up, will prescribe erythromycin ointment 4 times daily for 5 days or until ophthalmologic appointment. I reviewed the patient's CT cervical spine without contrast along the corresponding radiologic report, degenerative changes without acute bony abnormality I reviewed the patient's CT head without contrast along with corresponding radiologic report mild to moderate atrophy without acute abnormality. I discussed these results with the patient at the bedside, patient is cleared to be discharged home to self-care. 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 Patient voiced understanding and agree with current treatment plan/discharge plan, visual acuity seems to be at patient's baseline. <Lm Wilhelm MD - Last Filed: 07/21/24 17:55> Vital Signs: 07/21/24 14:50 07/21/24 15:00 07/21/24 15:30 Temperature 98.0 F Temperature Source Oral Pulse Rate 77 81 Pulse Rate [Radial] 87 Respiratory Rate 18 Blood Pressure 120/70 114/72 Blood Pressure [Right Arm] 129/79 Blood Pressure Mean [Right Arm] 95 Blood Pressure Source Blood Pressure Source [Right Arm] Automatic Cuff Blood Pressure Position Blood Pressure Position [Right Arm] Sitting 02 Sat by Pulse Oximetry 95 95 98 Oxygen Delivery Method Room Air 07/21/24 17:03 07/21/24 17:07 Temperature 97.9 F 98.0 F Temperature Source Oral Oral Pulse Rate 66 75 Pulse Rate [Radial] Respiratory Rate 18 18 Blood Pressure 144/70 H 157/74 H Blood Pressure [Right Arm] Blood Pressure Mean [Right Arm] Blood Pressure Source Automatic Cuff Automatic Cuff Blood Pressure Source [Right Arm] Blood Pressure Position Sitting Blood Pressure Position [Right Arm] 02 Sat by Pulse Oximetry Oxygen Delivery Method Room Air Room Air Orders (Tests/Meds): ED MEDICATIONS Discontinued Medications Generic Name Dose Route Start Last Admin Trade Name Freq PRN Reason Stop Dose Admin Erythromycin 1 gm 07/21/24 17:00 07/21/24 17:02 Erythromycin Base 1 Gm Oint...G. OP 07/21/24 17:01 1 gm ONCE ONE Administration Fluorescein Sodium 1 mg 07/21/24 17:00 07/21/24 17:02 Fluorescein Sodium 1mg Strip OP 07/21/24 17:01 1 mg ONCE ONE Administration Neomycin/Polymyxin/Gramicidin 0 ml 07/21/24 17:00 07/21/24 17:02 Llniidoh-Wnzkab-Yght Ophth Soln 10ml Bottle OP 07/21/24 17:01 1 ml ONCE ONE Administration ORDERS Category Date Time Status CT cervical spine wo con Stat Cat Scan 07/21/24 15:[address] head/brain wo con Stat Cat Scan 07/21/24 15:07 Completed Medical Decision Narrative: 84-year-old male presents to the emergency department with right eye pain and decreased visual acuity, see HPI for detail past medical history, differential diagnose include not limited to keratitis, iritis, corneal abrasion, closed head injury, acute SDH, traumatic SAH, among others. Discussed patient case with temperature Dr. Wilhelm Will obtain CT head without contrast, CT cervical spine without contrast, and perform fluorescein test of the eye. I along with the attending physician Dr. Wilhelm performed fluorescein dye test, there are corneal abrasions/fluorescein dye uptake at approximately 2 PM, in the center of the pupil, and around 8/7:30 PM on the surface of the eye, will prescribe neomycin/polymyxin B ophthalmic drops, 1-2 GTTs affected eye every 4 for 7 days or until ophthalmologic/optometry follow-up, will prescribe erythromycin ointment 4 times daily for 5 days or until ophthalmologic appointment. I reviewed the patient's CT cervical spine without contrast along the corresponding radiologic report, degenerative changes without acute bony abnormality I reviewed the patient's CT head without contrast along with corresponding radiologic report mild to moderate atrophy without acute abnormality. I discussed these results with the patient at the bedside, patient is cleared to be discharged home to self-care. 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 Patient voiced understanding and agree with current treatment plan/discharge plan, visual acuity seems to be at patient's baseline. I was consulted by the ABRAHAN, and we discussed the complexity of the problems being addressed. I approved the treatment and management plan for this patient's care in the Emergency Department, thus performing a substantive portion of the medical decision making. Lm Wilhelm MD Critical Care <MICHAEL Walker - Last Filed: 07/21/24 16:56> Critical Care Time Critical Care Time: No
--- NOTE | 2024-07-21 15:18 | PC.NURSE ---
PT TO CT
[2024-07-21 15:30] VITALS: BP 114/72; PULSE 81; O2SAT 98
[2024-07-21] MEDS: FLUORESCEIN SODIUM 1MG STRIP 1 MG OP (17:02)
[2024-07-21] MEDS: ERYTHROMYCIN BASE 1 GM OINT...G. OP (17:02)
[2024-07-21] MEDS: NEOMYCIN-POLYMY-GRAM OPHTH SOLN 10ML BOTTLE OP (17:02)
[2024-07-21 17:03] VITALS: BP 144/70; PULSE 66; RESP 18; TEMP 36.6; O2SAT 98
[2024-07-21 17:07] VITALS: BP 157/74; PULSE 75; RESP 18; TEMP 36.7; O2SAT 97
== END 2024-07-21 17:08 | disposition home or self-care (01) ==
PROVIDERS: Emergency Provider Emergency Medicine; PCP Family Medicine
DX: S05.01XA Injury of conjunctiva and corneal abrasion without foreign body, right eye, initial encounter (principal); H05.41 Enophthalmos due to atrophy of orbital tissue; H57.11 Ocular pain, right eye; X58.XXXA Exposure to other specified factors, initial encounter
CPT/HCPCS: 70450; 72125; 99285